=== PATIENT | male | born 1950 | race Caucasian/White ===

== ENCOUNTER → 2016-11-13 | Outpatient (CLI) | payer MEDICARE, OTHER | END | disposition home or self-care (01) | LOC: Rad HDHVI 09:29 | PROVIDERS: ATTEND Internal Medicine Cardiovascular Disease | DX: J32.9 Chronic sinusitis, unspecified (principal) | CPT/HCPCS: 70220 ==

== ENCOUNTER → 2017-03-06 | Outpatient (CLI) | payer MEDICARE, OTHER | END | disposition home or self-care (01) | LOC: Rad HDHVI 10:27 | PROVIDERS: ATTEND Internal Medicine Cardiovascular Disease | DX: Z01.812 Encounter for preprocedural laboratory examination (principal); R94.4 Abnormal results of kidney function studies | CPT/HCPCS: 36415; 82565; 84520; 93880 ==

== ENCOUNTER → 2017-06-18 | Outpatient (CLI) | payer MEDICARE, OTHER ==
[~2017-06-18] MED LIST: ALLO300T2 PO; ASPI81TA27 PO; ATOR20TA50 PO; CELE200C PO; CHOL20007 OR; CLIN1CAP4 PO; DULA0.5I SC; INSLISPI SC; INSU1.2I SC; LEVO100T8 PO; METF-372 PO; MULTTAB61 PO; NEBI10TA2 PO; RIV15T PO; TELM80TA PO
[2017-06-18 16:19] LABS: Calcium 9.6 mg/dL (8.5-10.1)
[2017-06-18 16:21] LABS: Basophils # (auto) 0 uL; Basophils % (auto) 0.2 % (0.0-2.0); Eosinophils # (auto) 0.1 uL; Eosinophils % (auto) 0.6 % (0.0-7.0); Hematocrit 46.5 % (41.0-53.0); Hemoglobin 15.4 g/dL (13.5-17.5); Lymphocytes # (auto) 1.9 uL; Lymphocytes % (auto) 9.5 % (10.0-50.0); Mean Corpuscular Hemoglobin 28.5 pg (28.0-32.0); Mean Corpuscular Hgb Conc. 33.1 g/dL (32.0-36.0); Monocytes # (auto) 1.3 uL; Monocytes % (auto) 6.6 % (0.0-12.0); Neutrophils # (auto) 16.2 uL; Neutrophils % (auto) 83.1 % (37.0-80.0); Nucleated Red Blood Cells % 0.2 %; Platelet Count (auto) 281 10^3/uL (140-450); Red Cell Distribution Width 15.6 % (11.8-14.3); White Blood Cell 19.5 10^3/uL (4.4-10.8)
[2017-06-18 16:25] LABS: Urine Bilirubin Negative (Negative); Urine Blood Negative /uL (Negative); Urine Color Yellow (Yellow); Urine Glucose Normal (Normal); Urine Ketone Negative (Negative); Urine Nitrite Negative (Negative); Urine Urobilinogen Normal (Negative)
== END | disposition home or self-care (01) ==
LOC: LAB 13:22
PROVIDERS: ATTEND Internal Medicine Cardiovascular Disease
DX: I10 Essential (primary) hypertension (principal); D64.9 Anemia, unspecified; N39.0 Urinary tract infection, site not specified
CPT/HCPCS: 36415; 80048; 81003; 85025

== ENCOUNTER → 2017-07-02 | Outpatient (CLI) | payer MEDICARE, OTHER ==
[~2017-07-02] MED LIST changes: +HEPARIN 1,000 UNITS/ml 1ML VIAL ONE
== END | disposition home or self-care (01) ==
LOC: XY 08:33
PROVIDERS: ATTEND Orthopaedic Surgery
DX: T81.4XXA Infection following a procedure, initial encounter (principal)
CPT/HCPCS: 78805; A9547; J1644

== ENCOUNTER → 2017-09-11 | Outpatient (CLI) | payer MEDICARE, OTHER ==
[~2017-09-11] MED LIST changes: -HEPARIN 1,000 UNITS/ml 1ML VIAL ONE
== END | disposition home or self-care (01) ==
LOC: LAB 08:56
PROVIDERS: ATTEND Internal Medicine Cardiovascular Disease
DX: E11.9 Type 2 diabetes mellitus without complications (principal); E55.9 Vitamin D deficiency, unspecified; R53.81 Other malaise; R97.20 Elevated prostate specific antigen [PSA]
CPT/HCPCS: 36415; 82306; 83036; 84153; 84403

== ENCOUNTER → 2018-05-20 | Outpatient (CLI) | payer MEDICARE, OTHER | END | disposition home or self-care (01) | LOC: LAB 09:16 | PROVIDERS: ATTEND Internal Medicine Cardiovascular Disease | DX: E11.40 Type 2 diabetes mellitus with diabetic neuropathy, unspecified (principal) | CPT/HCPCS: 36415; 83036 ==

== ENCOUNTER → 2018-06-27 | Outpatient (CLI) | payer MEDICARE, BC ==
[~2018-06-27] VITALS: Ht 177.8 cm; Wt 111.1 kg
[~2018-06-27] MED LIST changes: +ADENOSINE 90 MG/30 ML INJ IV ONE; +ADENOSINE 93 MG in GIVE UN-DILUTED 0 ML IV ONE
== END | disposition home or self-care (01) ==
LOC: Rad HDHVI 13:17
PROVIDERS: ATTEND Internal Medicine Cardiovascular Disease
DX: E11.40 Type 2 diabetes mellitus with diabetic neuropathy, unspecified (principal); E11.65 Type 2 diabetes mellitus with hyperglycemia; E78.5 Hyperlipidemia, unspecified; I10 Essential (primary) hypertension
CPT/HCPCS: 78452; 93005; 96374; 96375; A9500; J0153

== ENCOUNTER → 2019-04-15 | Outpatient (CLI) | payer MEDICARE, BC ==
[~2019-04-15] MED LIST changes: -ADENOSINE 90 MG/30 ML INJ IV ONE; -ADENOSINE 93 MG in GIVE UN-DILUTED 0 ML IV ONE; +ASPI-404 PO; -ASPI81TA27 PO; -CLIN1CAP4 PO; +CLIN300C8 PO
[2019-04-15 12:25] LABS: Basophils # (auto) 0.1 uL; Eosinophils # (auto) 0.2 uL; Lymphocytes # (auto) 1.6 uL; Nucleated Red Blood Cells % 0.1 %
[2019-04-15 12:28] LABS: Basophils % (auto) 0.8 % (0.0-2.0); Hematocrit 50.6 % (41.0-53.0); Hemoglobin 17.6 g/dL (13.5-17.5); Lymphocytes % (auto) 15.5 % (10.0-50.0); Mean Corpuscular Hemoglobin 31.7 pg (28.0-32.0); Mean Corpuscular Hgb Conc. 34.7 g/dL (32.0-36.0); Mean Corpuscular Volume 91.3 fL (80.0-100.0); Monocytes # (auto) 0.8 uL; Monocytes % (auto) 7.4 % (0.0-12.0); Neutrophils # (auto) 7.6 uL; Neutrophils % (auto) 74.3 % (37.0-80.0); Platelet Count (auto) 247 10^3/uL (140-450); Red Blood Cells 5.54 10^6/uL (4.5-5.90); Red Cell Distribution Width 14.8 % (11.8-14.3); White Blood Cell 10.2 10^3/uL (4.4-10.8)
[2019-04-15 12:37] LABS: Potassium 3.9 mmol/L (3.5-5.1)
[2019-04-15 12:48] LABS: Albumin 3.2 g/dL (3.4-5.0); BUN/Creatinine Ratio 16.7; Bilirubin, Total 1.3 mg/dL (0.2-1.0); Calcium 9.2 mg/dL (8.5-10.1); Total Protein 7.7 g/dL (6.4-8.2); Urine Blood Negative /uL (Negative); Urine Specific Gravity 1.024 (1.001-1.035)
[2019-04-15 13:11] LABS: Free T4 (Free Thyroxine) 1.13 ng/dL (0.89-1.76)
[2019-04-15 13:12] LABS: Prostate Specific Antigen 1.21 ng/mL (0.0-4.0)
== END | disposition home or self-care (01) ==
LOC: Rad HDHVI 08:08
PROVIDERS: ATTEND Internal Medicine Cardiovascular Disease
DX: E11.40 Type 2 diabetes mellitus with diabetic neuropathy, unspecified (principal); E03.9 Hypothyroidism, unspecified; K90.9 Intestinal malabsorption, unspecified; C61 Malignant neoplasm of prostate; E29.1 Testicular hypofunction; N39.0 Urinary tract infection, site not specified; D51.9 Vitamin B12 deficiency anemia, unspecified; Z79.899 Other long term (current) drug therapy
CPT/HCPCS: 36415; 80053; 80061; 81003; 82306; 82607; 83036; 84153; 84403; 84439; 84443; 85025; 93880

== ENCOUNTER → 2019-04-23 | Outpatient (CLI) | payer MEDICARE, BC ==
[~2019-04-23] VITALS: Ht 177.8 cm; Wt 101.2 kg
[~2019-04-23] MED LIST changes: +ADENOSINE 85 MG in GIVE UN-DILUTED 0 ML IV ONE; +ADENOSINE 90 MG/30 ML INJ IV ONE
== END | disposition home or self-care (01) ==
LOC: Rad HDHVI 12:45
PROVIDERS: ATTEND Internal Medicine Cardiovascular Disease
DX: I08.1 Rheumatic disorders of both mitral and tricuspid valves (principal); I49.5 Sick sinus syndrome; R06.02 Shortness of breath
CPT/HCPCS: 78452; 93005; 93306; 96374; 96375; A9500; J0153

== ENCOUNTER → 2019-09-01 | Outpatient (CLI) | payer MEDICARE, BC ==
[~2019-09-01] MED LIST changes: -ADENOSINE 85 MG in GIVE UN-DILUTED 0 ML IV ONE; -ADENOSINE 90 MG/30 ML INJ IV ONE
[2019-09-01 12:42] LABS: Albumin 3.2 g/dL (3.4-5.0); Calcium 8.8 mg/dL (8.5-10.1); Potassium 4.2 mmol/L (3.5-5.1)
[2019-09-01 12:46] LABS: BUN/Creatinine Ratio 13.6; Bilirubin, Total 0.9 mg/dL (0.2-1.0); Total Protein 7.5 g/dL (6.4-8.2)
== END | disposition home or self-care (01) ==
LOC: LAB 10:52
PROVIDERS: ATTEND Internal Medicine Cardiovascular Disease
DX: E11.9 Type 2 diabetes mellitus without complications (principal); Z79.899 Other long term (current) drug therapy
CPT/HCPCS: 36415; 80053; 83036

== ENCOUNTER → 2019-09-15 | Outpatient (CLI) | payer MEDICARE, BC | END | disposition home or self-care (01) | LOC: LAB 12:12 | PROVIDERS: ATTEND Internal Medicine Cardiovascular Disease | DX: E29.1 Testicular hypofunction (principal); R94.4 Abnormal results of kidney function studies | CPT/HCPCS: 36415; 82565; 84403 ==

== ENCOUNTER → 2019-09-16 | Outpatient (CLI) | payer MEDICARE, BC ==
[~2019-09-16] MED LIST changes: +IOHEXOL 350 MG/ML 100ML IJ ONE
[2019-09-16 09:50] VITALS: BP 143/78
[2019-09-16 10:30] VITALS: BP 127/87
== END | disposition home or self-care (01) ==
LOC: Rad HDHVI 09:22
PROVIDERS: ATTEND Internal Medicine Cardiovascular Disease
DX: I70.1 Atherosclerosis of renal artery (principal); K57.30 Diverticulosis of large intestine without perforation or abscess without bleeding; I73.9 Peripheral vascular disease, unspecified; I10 Essential (primary) hypertension; M10.9 Gout, unspecified; Z95.0 Presence of cardiac pacemaker
CPT/HCPCS: 75635; G0463; Q9967

== ENCOUNTER → 2020-04-09 | Outpatient (CLI) | payer MEDICARE, BC ==
[~2020-04-09] MED LIST changes: -ASPI-404 PO; +ASPI-543 PO; -IOHEXOL 350 MG/ML 100ML IJ ONE; +MULT-1018 PO; -MULTTAB61 PO
== END | disposition home or self-care (01) ==
LOC: Rad HDHVI 08:48
PROVIDERS: ATTEND Internal Medicine Cardiovascular Disease
DX: Z13.88 Encounter for screening for disorder due to exposure to contaminants (principal); I70.0 Atherosclerosis of aorta; M47.814 Spondylosis without myelopathy or radiculopathy, thoracic region; Z95.0 Presence of cardiac pacemaker
CPT/HCPCS: 71046

== ENCOUNTER → 2020-04-15 | Outpatient (CLI) | payer MEDICARE, BC | END | disposition home or self-care (01) | LOC: Rad HDHVI 09:03 | PROVIDERS: ATTEND Internal Medicine Cardiovascular Disease | DX: I34.0 Nonrheumatic mitral (valve) insufficiency (principal); I51.7 Cardiomegaly; R00.2 Palpitations; R06.02 Shortness of breath | CPT/HCPCS: 93306 ==

== ENCOUNTER → 2020-04-21 | Outpatient (CLI) | payer MEDICARE, BC ==
[~2020-04-21] VITALS: Ht 177.8 cm; Wt 104.3 kg
[~2020-04-21] MED LIST changes: +ADENOSINE 88 MG in GIVE UN-DILUTED 0 ML IV ONE; +ADENOSINE 90 MG/30 ML INJ IV ONE
== END | disposition home or self-care (01) ==
LOC: Rad HDHVI 09:03
PROVIDERS: ATTEND Internal Medicine Cardiovascular Disease
DX: I10 Essential (primary) hypertension (principal); E11.21 Type 2 diabetes mellitus with diabetic nephropathy; E78.5 Hyperlipidemia, unspecified; R06.02 Shortness of breath; R00.2 Palpitations; Z95.0 Presence of cardiac pacemaker; Z82.49 Family history of ischemic heart disease and other diseases of the circulatory system
CPT/HCPCS: 78452; 93005; 96374; 96375; A9500; J0153

== ENCOUNTER → 2020-04-26 | Outpatient (CLI) | payer MEDICARE, BC ==
[~2020-04-26] MED LIST changes: -ADENOSINE 88 MG in GIVE UN-DILUTED 0 ML IV ONE; -ADENOSINE 90 MG/30 ML INJ IV ONE
[2020-04-26 12:05] LABS: Basophils # (auto) 0 10 ^3/uL (0-0.2); Basophils % (auto) 0.3 % (0.0-2.0); Eosinophils # (auto) 0.3 10 ^3/uL (0-0.8); Eosinophils % (auto) 2.6 % (0.0-7.0); Hematocrit 52.9 % (41.0-53.0); Hemoglobin 17.3 g/dL (13.5-17.5); Lymphocytes # (auto) 1.8 10 ^3/uL (0.4-5.4); Lymphocytes % (auto) 17.9 % (10.0-50.0); Mean Corpuscular Hemoglobin 31.1 pg (28.0-32.0); Mean Corpuscular Hgb Conc. 32.7 g/dL (32.0-36.0); Mean Corpuscular Volume 95.2 fL (80.0-100.0); Monocytes # (auto) 0.7 10 ^3/uL (0-1.3); Monocytes % (auto) 6.5 % (0.0-12.0); Neutrophils # (auto) 7.3 10 ^3/uL (1.6-8.6); Neutrophils % (auto) 72.7 % (37.0-80.0); Nucleated Red Blood Cells % 0.2 %; Platelet Count (auto) 246 10^3/uL (140-450); Red Blood Cells 5.56 10^6/uL (4.5-5.90); Red Cell Distribution Width 15.2 % (11.8-14.3); White Blood Cell 10.1 10^3/uL (4.4-10.8)
[2020-04-26 12:11] LABS: Urine Blood Negative /uL (Negative)
[2020-04-26 12:25] LABS: Albumin 3.3 g/dL (3.4-5.0); Potassium 4.2 mmol/L (3.5-5.1)
[2020-04-26 12:32] LABS: BUN/Creatinine Ratio 11.5; Bilirubin, Total 0.8 mg/dL (0.2-1.0); Calcium 9.3 mg/dL (8.5-10.1); Free T4 (Free Thyroxine) 1.01 ng/dL (0.89-1.76); Total Protein 7.5 g/dL (6.4-8.2)
== END | disposition home or self-care (01) ==
LOC: LAB 08:29
PROVIDERS: ATTEND Internal Medicine Cardiovascular Disease
DX: C61 Malignant neoplasm of prostate (principal); D51.3 Other dietary vitamin B12 deficiency anemia; D64.9 Anemia, unspecified; E11.9 Type 2 diabetes mellitus without complications; E55.9 Vitamin D deficiency, unspecified; I10 Essential (primary) hypertension; R00.2 Palpitations; R53.1 Weakness; R30.0 Dysuria
CPT/HCPCS: 36415; 80053; 80061; 81003; 82306; 82607; 83036; 84153; 84403; 84439; 84443; 85025

== ENCOUNTER → 2020-11-16 | Outpatient (CLI) | payer MEDICARE, BC ==
[2020-11-16 11:42] LABS: Basophils # (auto) 0 10 ^3/uL (0-0.2); Basophils % (auto) 0.2 % (0.0-2.0); Eosinophils # (auto) 0.4 10 ^3/uL (0-0.8); Eosinophils % (auto) 2.9 % (0.0-7.0); Hematocrit 52.1 % (41.0-53.0); Hemoglobin 17.4 g/dL (13.5-17.5); Lymphocytes # (auto) 2.6 10 ^3/uL (0.4-5.4); Lymphocytes % (auto) 20.8 % (10.0-50.0); Mean Corpuscular Hgb Conc. 33.4 g/dL (32.0-36.0); Mean Corpuscular Volume 95.7 fL (80.0-100.0); Monocytes # (auto) 0.9 10 ^3/uL (0-1.3); Monocytes % (auto) 7.4 % (0.0-12.0); Neutrophils # (auto) 8.5 10 ^3/uL (1.6-8.6); Neutrophils % (auto) 68.7 % (37.0-80.0); Nucleated Red Blood Cells % 0.1 %; Platelet Count (auto) 261 10^3/uL (140-450); Red Blood Cells 5.45 10^6/uL (4.5-5.90); Red Cell Distribution Width 14.7 % (11.8-14.3); White Blood Cell 12.4 10^3/uL (4.4-10.8)
[2020-11-16 11:54] LABS: Albumin 3.4 g/dL (3.4-5.0); Calcium 8.9 mg/dL (8.5-10.1); Potassium 3.8 mmol/L (3.5-5.1)
[2020-11-16 11:59] LABS: BUN/Creatinine Ratio 16.2; Total Protein 7.6 g/dL (6.4-8.2)
[2020-11-16 12:03] LABS: Free T4 (Free Thyroxine) 1.29 ng/dL (0.89-1.76); Prostate Specific Antigen 0.94 ng/mL (0.0-4.0)
== END | disposition home or self-care (01) ==
LOC: LAB 08:49
PROVIDERS: ATTEND Internal Medicine Cardiovascular Disease
DX: C61 Malignant neoplasm of prostate (principal); D51.3 Other dietary vitamin B12 deficiency anemia; I10 Essential (primary) hypertension; E11.9 Type 2 diabetes mellitus without complications; E55.9 Vitamin D deficiency, unspecified; D64.9 Anemia, unspecified; R00.2 Palpitations; R53.1 Weakness; R30.0 Dysuria
CPT/HCPCS: 36415; 80053; 80061; 82306; 82607; 83036; 84153; 84403; 84439; 84443; 85025

== ENCOUNTER → 2020-11-17 | Outpatient (CLI) | payer MEDICARE, BC ==
[2020-11-17 11:56] LABS: Urine Blood Negative /uL (Negative); Urine Specific Gravity 1.024 (1.001-1.035)
== END | disposition home or self-care (01) ==
LOC: LAB 10:38
PROVIDERS: ATTEND Internal Medicine Cardiovascular Disease
DX: N39.0 Urinary tract infection, site not specified (principal)
CPT/HCPCS: 81003

== ENCOUNTER → 2021-06-06 | Outpatient (CLI) | payer MEDICARE, BC | END | disposition home or self-care (01) | LOC: Rad HDHVI 07:55 | PROVIDERS: ATTEND Internal Medicine Cardiovascular Disease | DX: R00.2 Palpitations (principal); R06.02 Shortness of breath | CPT/HCPCS: 93306 ==

== ENCOUNTER → 2021-06-14 | Outpatient (CLI) | payer MEDICARE, BC ==
[~2021-06-14] VITALS: Ht 177.8 cm; Wt 104.3 kg
[~2021-06-14] MED LIST changes: +ADENOSINE 88 MG in GIVE UN-DILUTED 0 ML IV ONE; +ADENOSINE 90 MG/30 ML INJ IV ONE
== END | disposition home or self-care (01) ==
LOC: Rad HDHVI 08:22
PROVIDERS: ATTEND Internal Medicine Cardiovascular Disease
DX: R94.31 Abnormal electrocardiogram [ECG] [EKG] (principal); I10 Essential (primary) hypertension; E78.5 Hyperlipidemia, unspecified; E11.9 Type 2 diabetes mellitus without complications; Z95.0 Presence of cardiac pacemaker; Z82.49 Family history of ischemic heart disease and other diseases of the circulatory system
CPT/HCPCS: 78452; 82962; 93005; 96374; 96375; A9500; J0153

== ENCOUNTER → 2021-07-04 | Outpatient (CLI) | payer MEDICARE, BC ==
[~2021-07-04] MED LIST changes: -ADENOSINE 88 MG in GIVE UN-DILUTED 0 ML IV ONE; -ADENOSINE 90 MG/30 ML INJ IV ONE
[2021-07-04 11:18] LABS: Basophils # (auto) 0 10 ^3/uL (0-0.2); Basophils % (auto) 0.4 % (0.0-2.0); Eosinophils # (auto) 0.3 10 ^3/uL (0-0.8); Eosinophils % (auto) 2.6 % (0.0-7.0); Hematocrit 51.7 % (41.0-53.0); Hemoglobin 17.4 g/dL (13.5-17.5); Lymphocytes # (auto) 2.6 10 ^3/uL (0.4-5.4); Lymphocytes % (auto) 23.4 % (10.0-50.0); Mean Corpuscular Hemoglobin 32.6 pg (28.0-32.0); Mean Corpuscular Hgb Conc. 33.6 g/dL (32.0-36.0); Mean Corpuscular Volume 96.8 fL (80.0-100.0); Monocytes # (auto) 0.9 10 ^3/uL (0-1.3); Neutrophils # (auto) 7.2 10 ^3/uL (1.6-8.6); Neutrophils % (auto) 65.6 % (37.0-80.0); Nucleated Red Blood Cells % 0.2 %; Red Blood Cells 5.35 10^6/uL (4.5-5.90); White Blood Cell 10.9 10^3/uL (4.4-10.8)
[2021-07-04 11:20] LABS: Urine Blood Negative /uL (Negative)
[2021-07-04 11:30] LABS: Albumin 3.4 g/dL (3.4-5.0)
[2021-07-04 11:37] LABS: BUN/Creatinine Ratio 13.7; Bilirubin, Total 1.1 mg/dL (0.2-1.0); Calcium 8.8 mg/dL (8.5-10.1); Total Protein 7.3 g/dL (6.4-8.2)
[2021-07-04 11:40] LABS: Free T4 (Free Thyroxine) 1.1 ng/dL (0.89-1.76); Prostate Specific Antigen 0.82 ng/mL (0.0-4.0)
== END | disposition home or self-care (01) ==
LOC: LAB 08:25
PROVIDERS: ATTEND Internal Medicine Cardiovascular Disease
DX: C61 Malignant neoplasm of prostate (principal); D51.3 Other dietary vitamin B12 deficiency anemia; R53.1 Weakness; R30.0 Dysuria; R00.2 Palpitations; E11.9 Type 2 diabetes mellitus without complications; E55.9 Vitamin D deficiency, unspecified; D64.9 Anemia, unspecified
CPT/HCPCS: 36415; 80053; 80061; 81003; 82306; 82607; 83036; 84153; 84403; 84439; 84443; 85025

== ENCOUNTER → 2021-12-19 | Outpatient (CLI) | payer MEDICARE, BC ==
[2021-12-19 11:53] LABS: Basophils # (auto) 0.1 10 ^3/uL (0-0.2); Basophils % (auto) 0.5 % (0.0-2.0); Eosinophils # (auto) 0.3 10 ^3/uL (0-0.8); Eosinophils % (auto) 2.2 % (0.0-7.0); Hematocrit 50.8 % (41.0-53.0); Hemoglobin 16.8 g/dL (13.5-17.5); Lymphocytes # (auto) 2.8 10 ^3/uL (0.4-5.4); Lymphocytes % (auto) 21.7 % (10.0-50.0); Mean Corpuscular Hemoglobin 31.5 pg (28.0-32.0); Mean Corpuscular Hgb Conc. 33.1 g/dL (32.0-36.0); Mean Corpuscular Volume 95.2 fL (80.0-100.0); Monocytes # (auto) 0.9 10 ^3/uL (0-1.3); Monocytes % (auto) 6.9 % (0.0-12.0); Neutrophils % (auto) 68.7 % (37.0-80.0); Red Blood Cells 5.34 10^6/uL (4.5-5.90); Red Cell Distribution Width 14.7 % (11.8-14.3); White Blood Cell 13.1 10^3/uL (4.4-10.8)
[2021-12-19 11:59] LABS: Potassium 3.7 mmol/L (3.5-5.1)
[2021-12-19 12:06] LABS: Prostate Specific Antigen 0.79 ng/mL (0.0-4.0)
[2021-12-19 12:20] LABS: Albumin 3.1 g/dL (3.4-5.0); BUN/Creatinine Ratio 16.4; Bilirubin, Total 0.8 mg/dL (0.2-1.0); Calcium 8.8 mg/dL (8.5-10.1); Total Protein 7.4 g/dL (6.4-8.2)
[2021-12-19 12:21] LABS: Free T4 (Free Thyroxine) 1.17 ng/dL (0.89-1.76)
[2021-12-19 16:29] LABS: Urine Blood Negative /uL (Negative); Urine Specific Gravity 1.023 (1.001-1.035)
== END | disposition home or self-care (01) ==
LOC: LAB 08:29
PROVIDERS: ATTEND Internal Medicine Cardiovascular Disease
DX: I10 Essential (primary) hypertension (principal); E11.9 Type 2 diabetes mellitus without complications; E55.9 Vitamin D deficiency, unspecified; D51.3 Other dietary vitamin B12 deficiency anemia; D64.9 Anemia, unspecified; R00.2 Palpitations; R53.1 Weakness; R30.0 Dysuria; C61 Malignant neoplasm of prostate
CPT/HCPCS: 36415; 80053; 80061; 81003; 82306; 82607; 83036; 84153; 84403; 84439; 84443; 85025

== ENCOUNTER → 2022-06-05 | Outpatient (CLI) | payer MEDICARE, BC | END | disposition home or self-care (01) | LOC: Rad HDHVI 08:45 | PROVIDERS: ATTEND Internal Medicine Cardiovascular Disease | DX: I08.3 Combined rheumatic disorders of mitral, aortic and tricuspid valves (principal); I11.9 Hypertensive heart disease without heart failure; E78.5 Hyperlipidemia, unspecified | CPT/HCPCS: 93306 ==

== ENCOUNTER → 2022-06-14 | Outpatient (CLI) | payer MEDICARE, BC ==
[~2022-06-14] VITALS: Ht 177.8 cm; Wt 102.1 kg
[~2022-06-14] MED LIST changes: +ADENOSINE 86 MG in GIVE UN-DILUTED 0 ML IV ONE; +ADENOSINE 90 MG/30 ML INJ IV ONE
== END | disposition home or self-care (01) ==
LOC: Rad HDHVI 09:00
PROVIDERS: ATTEND Internal Medicine Cardiovascular Disease
DX: I25.10 Atherosclerotic heart disease of native coronary artery without angina pectoris (principal); E78.5 Hyperlipidemia, unspecified; E78.00 Pure hypercholesterolemia, unspecified; E11.9 Type 2 diabetes mellitus without complications; I48.91 Unspecified atrial fibrillation; J44.9 Chronic obstructive pulmonary disease, unspecified; R06.02 Shortness of breath; I11.0 Hypertensive heart disease with heart failure; I50.33 Acute on chronic diastolic (congestive) heart failure; Z79.84 Long term (current) use of oral hypoglycemic drugs; Z79.899 Other long term (current) drug therapy; Z95.0 Presence of cardiac pacemaker; I48.0 Paroxysmal atrial fibrillation
CPT/HCPCS: 78452; 93005; 96374; 96375; A9500; J0153

== ENCOUNTER → 2022-06-21 | Outpatient (CLI) | payer MEDICARE, BC ==
[~2022-06-21] MED LIST changes: -ADENOSINE 86 MG in GIVE UN-DILUTED 0 ML IV ONE; -ADENOSINE 90 MG/30 ML INJ IV ONE
== END | disposition home or self-care (01) ==
LOC: Rad HDHVI 09:54
PROVIDERS: ATTEND Internal Medicine Cardiovascular Disease
DX: I65.22 Occlusion and stenosis of left carotid artery (principal); R07.89 Other chest pain; I10 Essential (primary) hypertension
CPT/HCPCS: 93880

== ENCOUNTER 2023-01-04 09:42 | Day surgery (SDC) | payer MEDICARE, BC ==
[2022-12-28 09:54] LABS: Basophils # (auto) 0.1 10 ^3/uL (0-0.2); Basophils % (auto) 0.5 % (0.0-2.0); Eosinophils # (auto) 0.2 10 ^3/uL (0-0.8); Eosinophils % (auto) 1.2 % (0.0-7.0); Hemoglobin 16.6 g/dL (13.5-17.5); Lymphocytes # (auto) 1.4 10 ^3/uL (0.4-5.4); Lymphocytes % (auto) 11.1 % (10.0-50.0); Mean Corpuscular Hemoglobin 31.8 pg (28.0-32.0); Mean Corpuscular Hgb Conc. 33.9 g/dL (32.0-36.0); Monocytes # (auto) 0.8 10 ^3/uL (0-1.3); Monocytes % (auto) 6.4 % (0.0-12.0); Neutrophils # (auto) 10.5 10 ^3/uL (1.6-8.6); Neutrophils % (auto) 80.8 % (37.0-80.0); Red Blood Cells 5.22 10^6/uL (4.5-5.90); Red Cell Distribution Width 15.1 % (11.8-14.3)
[2022-12-28 10:41] LABS: INR 0.97 (0.9-1.15); Partial Thromboplastin Time 30.5 sec (24.6-33.4)
[2022-12-28 11:09] LABS: Potassium 4.2 mmol/L (3.5-5.1)
[2022-12-28 11:19] LABS: Albumin 3.6 g/dL (3.4-5.0); BUN/Creatinine Ratio 14.2 (10.0-20.0); Bilirubin, Total 0.8 mg/dL (0.2-1.0); Total Protein 7.2 g/dL (6.4-8.2)
[2022-12-28 12:54] LABS: Urine Bacteria NONE SEEN /hpf (None Seen); Urine Blood Negative /uL (Negative); Urine Specific Gravity 1.024 (1.001-1.035); Urine WBC <1 /hpf (0 - 3)
[~2023-01-04] VITALS: Ht 177.8 cm; Wt 99.8 kg
[~2023-01-04 09:42] MED LIST changes: +APIX5TAB PO; -CLIN300C8 PO; -RIV15T PO
[2023-01-04] MEDS ORDERED: fentaNYL CITRATE 100 MCG/2 ML VL ONE (12:02)
[2023-01-04] MEDS ORDERED: MIDAZOLAM HCL 2MG/2ML 2ml VIAL (1mg/ml) ONE (12:02)
[2023-01-04] MEDS ORDERED: ONDANSETRON HCL 4 MG/2 ML VIAL ONE (12:25)
[2023-01-04] MEDS ORDERED: PROPOFOL 10 MG/ML 20 ML IV ONE (12:25)
[2023-01-04] MEDS ORDERED: KETAMINE HCL 10 ML ONE (13:02)
[2023-01-04] MEDS ORDERED: ONDANSETRON HCL 4 MG/2 ML VIAL IV PRN (13:30)
[2023-01-04 14:18] VITALS: BP 117/73
== END 2023-01-04 14:29 | disposition home or self-care (01) ==
LOC: GI 09:42
PROVIDERS: ATTEND Internal Medicine Gastroenterology
DX: R13.10 Dysphagia, unspecified (principal); K59.00 Constipation, unspecified; K57.30 Diverticulosis of large intestine without perforation or abscess without bleeding; E11.9 Type 2 diabetes mellitus without complications
CPT/HCPCS: 36415; 43248; 45378; 80053; 81001; 82962; 85025; 85610; 85730; J2250; J2405; J2704; J3010; J7030

== ENCOUNTER → 2023-06-12 | Outpatient (CLI) | payer MEDICARE, BC | END | disposition home or self-care (01) | LOC: Rad HDHVI 09:56 | PROVIDERS: ATTEND Internal Medicine Cardiovascular Disease | DX: I08.3 Combined rheumatic disorders of mitral, aortic and tricuspid valves (principal); R07.89 Other chest pain; E78.5 Hyperlipidemia, unspecified | CPT/HCPCS: 93306 ==

== ENCOUNTER → 2023-06-25 | Outpatient (CLI) | payer MEDICARE, BC ==
[~2023-06-25] VITALS: Ht 177.8 cm; Wt 95.3 kg
[~2023-06-25] MED LIST changes: +ADENOSINE 80 MG in GIVE UN-DILUTED 0 ML IV ONE; +ADENOSINE 90 MG/30 ML INJ IV ONE
== END | disposition home or self-care (01) ==
LOC: Rad HDHVI 09:22
PROVIDERS: ATTEND Internal Medicine Cardiovascular Disease
DX: I11.9 Hypertensive heart disease without heart failure (principal); R07.89 Other chest pain; R06.02 Shortness of breath; E11.21 Type 2 diabetes mellitus with diabetic nephropathy; E11.40 Type 2 diabetes mellitus with diabetic neuropathy, unspecified; I10 Essential (primary) hypertension; E78.5 Hyperlipidemia, unspecified; Z95.0 Presence of cardiac pacemaker; Z82.49 Family history of ischemic heart disease and other diseases of the circulatory system
CPT/HCPCS: 78452; 93005; 96374; 96375; A9500; J0153

== ENCOUNTER → 2024-08-25 | Outpatient (CLI) | payer MEDICARE, BC ==
[~2024-08-25] MED LIST changes: -ADENOSINE 80 MG in GIVE UN-DILUTED 0 ML IV ONE; -ADENOSINE 90 MG/30 ML INJ IV ONE
== END | disposition home or self-care (01) ==
LOC: Rad HDHVI 08:07
PROVIDERS: ATTEND Internal Medicine Cardiovascular Disease
DX: I11.0 Hypertensive heart disease with heart failure (principal); I50.33 Acute on chronic diastolic (congestive) heart failure
CPT/HCPCS: 93306

== ENCOUNTER → 2024-12-02 | Outpatient (CLI) | payer MEDICARE, BC ==
[~2024-12-02] MED LIST changes: +AMLO1TAB23 PO; +APIX2.5T PO; +FINA5TAB4 PO; +FINE10TA PO; +LISI-706 PO
[2024-12-02 12:10] VITALS: BP 125/61; PULSE 75; RESP 16; O2SAT 94
[2024-12-02 12:25] VITALS: BP 114/62; PULSE 73; RESP 16; O2SAT 94
--- NOTE | 2024-12-02 13:39 | DVH ---
XY CHEST TWO VIEWS ROUTINE CLINICAL HISTORY: PRE OP CARDIAC CLEARANCE, pain COMPARISON: CHEST TWO VIEWS ROUTINE on DOS: 04/09/20 TECHNIQUE: Frontal and lateral view of the chest was obtained FINDINGS: Lines and Tubes: Left sided pacemaker. Lungs: No focal consolidation. Pleura: No effusion. No pneumothorax. Cardiomediastinal contours: Unremarkable Bones: No acute osseous abnormality. IMPRESSION: No acute cardiopulmonary disease.
== END | disposition home or self-care (01) ==
LOC: Rad HDHVI 11:57
PROVIDERS: ATTEND Internal Medicine Cardiovascular Disease
DX: Z01.818 Encounter for other preprocedural examination (principal); I48.91 Unspecified atrial fibrillation; R07.9 Chest pain, unspecified; I50.1 Left ventricular failure, unspecified; I49.5 Sick sinus syndrome
CPT/HCPCS: 71046; 93005; G0463

== ENCOUNTER → 2025-02-06 | Outpatient (CLI) | payer MEDICARE, BC ==
[~2025-02-06] MED LIST changes: -APIX5TAB PO; -ASPI-543 PO; -NEBI10TA2 PO; -TELM80TA PO
== END | disposition home or self-care (01) ==
LOC: Rad HDHVI 08:52
PROVIDERS: ATTEND Internal Medicine Cardiovascular Disease
DX: I08.1 Rheumatic disorders of both mitral and tricuspid valves (principal); I11.0 Hypertensive heart disease with heart failure; I50.33 Acute on chronic diastolic (congestive) heart failure
CPT/HCPCS: 93306

== ENCOUNTER 2025-03-15 16:26 | Inpatient (IN) | payer MEDICARE, BC ==
[~2025-03-15] VITALS: Ht 175.3 cm; Wt 90.2 kg
--- NOTE | 2025-03-15 17:38 | ECG ---
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
--- NOTE | 2025-03-15 17:47 | ED.PDOC ---
History of Present Illness HPI Comments 74M BIBA w/ prior MHx of HTN, DM, High Lipids, Thyroid:SHx of Pacemaker, Left hip Sx, Bilateral Knee Sx and the c/c of syncope. Pt reports on getting an angiogram last week with Dr. Strong. Pt states on being dizzy, earlier today and his had to help the pt out due from him feeling weak and having N/. Pt n otes that he did not have a syncopal episode but he did "feel as if I was going to pass out". Denies chills, fever, /V/D, SOB, CP. Denies any other associated symptom's, modifiers, or recent injuries or sick contact at this time. Chief Complaint: Syncope Time Seen by MD: 17:30 Reviewed Notes: Nurses Notes, Medications, Allergies Allergies: Coded Allergies: Penicillins (Verified Allergy, Unknown, 12/02/24) Home Meds Reported Medications Insulin Glargine (Toujeo Solostar) 300 Unit/Ml Inj, 24 UNIT SC for DIABETES, INJ 12/02/24 Finerenone (Kerendia) 10 Mg Tab, 10 MG PO DAILY for DIABETES, TAB 12/02/24 Lisinopril & Hydrochlorothiazi (Zestoretic 20-12.5 mg) 1 Tab Tab, 2 TAB PO DAILY for BP/EDEMA, TAB 12/02/24 Amlodipine Besylate (Amlodipine Besylate) 10 Mg Tab, 1 TAB PO DAILY for HTN, #30 TAB 5 Refills 12/02/24 Apixaban Base (ELIQUIS) 2.5 Mg Tab, 2.5 MG PO BID for STOP ON 12/03/24, TAB 12/02/24 Finasteride (Finasteride) 5 Mg Tab, 5 MG PO DAILY for BPH, MG 12/02/24 Allopurinol (Allopurinol) 300 Mg Tab, 300 MG PO DAILY for GOUT for 30 Days, MG 03/23/17 Levothyroxine Sodium (Levothyroxine Sodium) 100 Mcg Tab, 100 MCG PO QAM for LOW THYROID for 30 Days, MCG 03/23/17 Multiple Vitamin (Multivitamins) Tab, 1 TAB PO DAILY, #90 TAB 3 Refills 03/23/17 Metformin Hydrochloride (Metformin Hcl) 1,000 Mg Tab, 1 TAB PO BID for DIABETES, #60 TAB 5 Refills 03/23/17 Cholecalciferol (VITAMIN D3) 2,000 Unit Tab, 1000 UNIT OR DAILY, TAB 03/23/17 Celecoxib (Celebrex) 200 Mg Cap, 1 CAP PO DAILY for PAIN, #30 CAP 2 Refills 03/23/17 Atorvastatin Calcium (ATORVASTATIN CALCIUM) 20 Mg Tab, 2 TAB PO DAILY for HIGH CHOLESTEROL, #30 TAB 5 Refills 03/23/17 Insulin Lispro (Human) (Humalog) 100 Mg/Ml Inj, 24 UNITS SC TID, INJ 03/23/17 Dulaglutide (Trulicity) 1.5 Mg/0.5 Ml Inj, 1.5 MG SC QWEEKLY for SATURDAYS, INJ 03/23/17 Information Source: Patient Mode of Arrival: EMS Severity: Moderate Timing: Hours Duration: Since onset, Hours Prehospital treatment: None Past Medical History PAST MEDICAL HISTORY: DM, High Lipids, HTN, Thyroid Surgical History: Pacemaker Surgical History (Other): left hip Sx, Bilateral Knee Sx Family History Family History: Reviewed,noncontributory to illness, Family hx of HTN Social History Smoker: Non-Smoker Alcohol: Denies ETOH Use Drugs: Denies Drug Use Lives In: Home Constitutional: denies: chills, diaphoresis, fatigue, fever, malaise, sweats, weakness, others EENTM: denies: blurred vision, double vision, ear bleeding, ear discharge, ear drainage, ear pain, ear ringing, eye pain, eye redness, hearing loss, mouth pain, mouth swelling, nasal discharge, nose bleeding, nose congestion, nose pain, photophobia, tearing, throat pain, throat swelling, voice changes, others Respiratory: denies: cough, hemoptysis, orthopnea, SOB at rest, shortness of breath, SOB with excertion, stridor, wheezing, others Cardiovascular: denies: chest pain, dizzy spells, diaphoresis, Dyspnea on exertion, edema, irregular heart beat, left arm pain, lightheadedness, palpitations, PND, syncope, others Gastrointestinal: reports: nausea; denies: abdomen distended, abdominal pain, blood streaked bowels, constipated, diarrhea, dysphagia, difficulty swallowing, hematemesis, melena, poor appetite, poor fluid intake, rectal bleeding, rectal pain, vomiting, others Genitourinary: denies: burning, dysuria, flank pain, frequency, hematuria, incontinence, penile discharge, penile sore, pain, testicle pain, testicle swelling, urgency, others Neurological: reports: dizziness; denies: fainting, headache, left sided numbness, left sided weakness, numbness, paresthesia, pre-existing deficit, right sided numbness, right sided weakness, seizure, speech problems, tingling, tremors, weakness, others Musculoskeletal: denies: back pain, gout, joint pain, joint swelling, muscle pain, muscle stiffness, neck pain, others Integumetry: denies: bruises, change in color, change in hair/nails, dryness, laceration, lesions, lumps, rash, wounds, others Allergic/Immunocompromised: denies: Difficulty Healing, Frequent Infections, Hives, Itching, others Hematologic/Lymphatic: denies: anemia, blood clots, easy bleeding, easy bruising, swollen glands, others Endocrine: denies: excessive hunger, excessive sweating, excessive thirst, excessive urination, flushing, intolerance to cold, intolerance to heat, unexplained weight gain, unexplained weight loss, others Psychiatric: denies: anxiety, bipolar disorder, depression, hopeless, panic disorder, schizophrenia, sleepless, suicidal, others All Other Systems: Reviewed and Negative Physical Exam General Appearance: Moderate Distress HEENT: Pale Conjuntivae (L), Pale Conjuntivae (R), Pharynx Normal, TMs Normal Neck: Full Range of Motion, Non-Tender, Normal, Normal Inspection Respiratory: Chest Non-Tender, Decreased Breath Sounds, Lungs Clear, No Accessory Muscle Use, Respiratory Distress Cardiovascular: No Edema, No JVD, No Murmur, No Gallop, Normal Peripheral Pulses, Regular Rate/Rhythm Breast Exam: Deferred Gastrointestinal: No Organomegaly, Non Tender, No Pulsatile Mass, Normal Bowel Sounds, Soft Genitalia: Deferred Pelvic: Deferred Rectal: Deferred Extremities: No calf tenderness, Normal capillary refill, Non-tender, No pedal edema, Other (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 Was a procedure done?: No EKG EKG : Pulse Rate (adult): 79 [place]: Normal Cardiac Rhythm: NSR ST: Nonsp Differential Dx Considerations may include: Episode of syncope, autonomic dysfunction, generalized weakness, electrolyte imbalance X-Ray, Labs, Meds, VS Vital Signs Date Time Temp Pulse Resp B/P (MAP) Pulse Ox O2 Delivery O2 Flow Rate FiO2 03/15/25 19:35 70 13 97 Nasal Cannula* 2 28 03/15/25 19:35 70 13 106/62 (77) 97 03/15/25 17:25 Nasal Cannula* 2 28 03/15/25 17:18 97.6 65 16 105/62 (76) 93 97.6 03/15/25 16:55 97.6 71 18 113/80 96 97.6 03/15/25 16:40 70 Lab Test 03/15/25 19:47 03/15/25 18:53 03/15/25 17:56 03/15/25 17:05 Range/Units Lactic Acid Level 2.8 *H 3.9 *H 0.4-2.0 mmol/L Troponin I High Sensitivity 12 12 </=54 ng/L White Blood Count 12.9 H 4.4-10.8 10^3/uL Red Blood Count 5.92 H 4.5-5.90 10^6/uL Hemoglobin 19.3 H 13.5-17.5 g/dL Hematocrit 56.1 H 41.0-53.0 % Mean Corpuscular Volume 94.8 80.0-100.0 fL Mean Corpuscular Hemoglobin 32.7 H 28.0-32.0 pg Mean Corpuscular Hemoglobin Concent 34.5 32.0-36.0 g/dL Red Cell Distribution Width 13.6 11.8-14.3 % Platelet Count 336 140-450 10^3/uL Mean Platelet Volume 7.7 6.9-10.8 fL Neutrophils (%) (Auto) 85.9 H 37.0-80.0 % Lymphocytes (%) (Auto) 7.6 L 10.0-50.0 % Monocytes (%) (Auto) 5.8 0.0-12.0 % Eosinophils (%) (Auto) 0.4 0.0-7.0 % Basophils (%) (Auto) 0.3 0.0-2.0 % Neutrophils # (Auto) 11.1 H 1.6-8.6 10 ^3/uL Lymphocytes # (Auto) 1.0 0.4-5.4 10 ^3/uL Monocytes # (Auto) 0.7 0-1.3 10 ^3/uL Eosinophils # (Auto) 0 0-0.8 10 ^3/uL Basophils # (Auto) 0 0-0.2 10 ^3/uL Nucleated Red Blood Cells 0.0 % D-Dimer, Quantitative 1.05 H 0.0-0.49 mg/L FEU Sodium Level 139 136-145 mmol/L Potassium Level 4.3 3.5-5.1 mmol/L Chloride Level 98 98-107 mmol/L Carbon Dioxide Level 28 20-31 mmol/L Anion Gap 13 5-15 Blood Urea Nitrogen 31 H 9-23 mg/dL Creatinine 1.59 H 0.700-1.30 mg/dL Glomerular Filtration Rate Calc 46 >90 mL/min BUN/Creatinine Ratio 19.5 10.0-20.0 Serum Glucose 204 H 74-106 mg/dL Calcium Level 10.1 8.7-10.4 mg/dL POC Glucose 216 H 70-106 mg/dl Current Medications Medications (Trade) Dose Ordered Sig/Macario Route Start Time Stop Time Status Last Admin Sodium Chloride 500 ml @ 500 mls/hr Q1H ONCE IV 03/15/25 17:45 03/15/25 18:44 DC 03/15/25 19:40 IV Hep-Lock was established The patient was given normal saline at a 500 cc bolus The BUN is 31 and the creatinine is 1.59 The D-dimer is elevated at 1.05 Because of the episode of syncope we are concerned that the patient may have had a PE. The patient's CBC shows an elevated white blood cell count of 12.9. The patient's troponin level is within normal limits The lactic acid level went from 3.9 at 2.8 The patient is being admitted The chest x-ray is negative The CAT scan of the chest to rule out PE was done and shows no sign of any abnormalities Images Reviewed?: Images reviewed and evaluated by me Time of 1ST Reevaluation: 18:00 Reevaluation 1ST: Unchanged Patient Education/Counseling: Diagnosis, Treatment, Prognosis Family Education/Counseling: No Family Present SEPSIS Sepsis Screen Date sepsis recognized/suspect: Mar 15, 2025 Time Sepsis recognized/suspect: 1635 Recent Procedure: No On Antibiotic Therapy: No Respiratory Rate >20: No Heart Rate >90: No Temp<36 C (96.8 F) or >38.3 C: No SBP <90 or MAP <65 mmHG: No New Acute Mental Status Change: No Is the patient on CPAP, BIPAP,: No Physician Orders Electrocardigram (03/15/25 17:36) Chest Portable (03/15/25 17:38) Urinalysis (03/15/25 17:38) Heplock Iv (03/15/25 17:38) Brokerage Branch Manager (03/15/25 17:38) Blood Pressure (03/15/25 17:38) Pulse Oximetry (03/15/25 17:38) Blood Culture (03/15/25 17:38) Ct Angio Chest Contrast (03/15/25 20:06) Vital Signs Date Time Temp Pulse Resp B/P (MAP) Pulse Ox O2 Delivery O2 Flow Rate FiO2 03/15/25 19:35 70 13 97 Nasal Cannula* 2 28 03/15/25 19:35 70 13 106/62 (77) 97 03/15/25 17:25 Nasal Cannula* 2 28 03/15/25 17:18 97.6 65 16 105/62 (76) 93 97.6 03/15/25 16:55 97.6 71 18 113/80 96 97.6 03/15/25 16:40 70 Laboratory Tests Test 03/15/25 17:56 03/15/25 19:47 Lactic Acid Level 3.9 mmol/L (0.4-2.0) *H 2.8 mmol/L (0.4-2.0) *H White Blood Count 12.9 10^3/uL (4.4-10.8) H Medications Medications Dose Ordered Sig/Macario Route Start Time Stop Time Status Last Admin Dose Admin Sodium Chloride 500 ml @ 500 mls/hr Q1H ONCE IV 03/15/25 17:45 03/15/25 18:44 DC 03/15/25 19:40 Departure 1 Departure Time of Disposition: 21:29 Impression: Primary Impression: Autonomic dysfunction Additional Impression: Generalized weakness Disposition: ADMITTED INPATIENT Admit to: Med Surg Condition: Fair Critical Care Note Critical Care Time?: Yes (45 min-critical care time only) Stability Stability form required: Yes Unstable for transfer: Telemetry monitoring (Telemetry monitoring required), ED Physician Assesment (Clinical assesment) Heart Score Heart Score: Heart Score Response (Comments) Value History N/A 0 EKG N/A 0 Age N/A 0 Risk Factors N/A 0 Troponin N/A 0 Total 0 I personally scribed for ZONIA BAEZA MD ([email or web address]) on 03/15/25 at 17:47. Electronically submitted by Edilson Dukes ([email or web address]). ZONIA BAEZA MD Mar 15, 2025 17:47
--- NOTE | 2025-03-15 18:11 | DVH ---
EXAM: XY CHEST PORTABLE HISTORY: sob TECHNIQUE: 1 view of the chest COMPARISON: XY CHEST TWO VIEWS ROUTINE on DOS: 12/02/24 FINDINGS/IMPRESSION: LUNGS: No pleural effusion, consolidation, or pneumothorax MEDIASTINUM: Normal cardiac size. Left anterior chest cardiac device. BONES: No acute osseous abnormality OTHER: None
[2025-03-15 18:12] LABS: Hemoglobin 19.3 g/dL (13.5-17.5); Mean Corpuscular Hemoglobin 32.7 pg (28.0-32.0); Mean Corpuscular Volume 94.8 fL (80.0-100.0); Nucleated Red Blood Cells % 0.0 %
[2025-03-15 18:13] LABS: Hematocrit 56.1 % (41.0-53.0)
[2025-03-15 18:26] LABS: Potassium 4.3 mmol/L (3.5-5.1); Sodium 139 mmol/L (136-145)
[2025-03-15 18:27] LABS: Anion Gap 13 (5-15); Calcium 10.1 mg/dL (8.7-10.4); Carbon Dioxide 28 mmol/L (20-31)
[2025-03-15 18:32] LABS: BUN/Creatinine Ratio 19.5 (10.0-20.0)
[2025-03-15 18:36] LABS: Blood Urea Nitrogen 31 mg/dL (9-23); Chloride 98 mmol/L (98-107); Glucose 204 mg/dL (74-106)
[2025-03-15 18:50] LABS: Lactic Acid w/Reflex 3.9 mmol/L (0.4-2.0)
[2025-03-15 19:35] VITALS: PULSE 70; RESP 13; O2SAT 97
[2025-03-15] MEDS: SODIUM CHLORIDE 0.9% 500 ML IV ONE ×2 (19:40→23:41)
[2025-03-15] MEDS: IOHEXOL 350 MG/ML 100ML IJ ONE (20:24)
--- NOTE | 2025-03-15 21:08 | DVH ---
COMPUTERIZED TOMOGRAPHIC ANGIOGRAPHY OF THE CHEST WITH INTRAVENOUS CONTRAST REASON FOR EXAM: Shortness of breath COMPARISON: XY CHEST PORTABLE on DOS: 03/15/25, XY CHEST TWO VIEWS ROUTINE on DOS: 12/02/24, CT CHEST W ITH CONTRAST on DOS: 12/06/23, CHEST TWO VIEWS ROUTINE on DOS: 04/09/20 TECHNIQUE: The exam was performed on a multidetector spiral scanner. Spiral images were acquired fro m the thoracic inlet through the adrenal glands, during the bolus intravenous administration of cont rast. Multiplanar maximum intensity projection (MIP) images were provided. Radiation optimization: Al l CT scans at this facility use at least one of these dose optimization techniques: Automated exposur e control mA and/or kV adjustment per patient size (includes targeted exams where dose is matched to clinical indication) or iterative reconstruction. CONTRAST ADMINISTERED: 90 mL omnipaque 350 intravenously. RADIATION DOSE: CTDI: 26.42 mGy DLP: 1007.48 mGy-cm FINDINGS: Evaluation of the lung parenchyma is severely degraded by respiratory motion artifacts. Th ere is no lobar consolidation. There is no pleural effusion. There is no pneumothorax. Heart is borde rline enlarged. There is no significant pericardial effusion. There are coronary artery calcificatio ns. There is a cardiac pacer. Evaluation of all the chest structures is degraded by severe motion art ifact. There is no large central pulmonary embolism. There is diffuse thickening of the entire length of the esophagus. The visualized portion of the upper abdomen is grossly unremarkable. No acute osse ous abnormality is identified within the limitations of severe motion artifact. IMPRESSION: No large central pulmonary embolism. The study is severely degraded by motion artifact. Diffuse thickening of the entire length of the esophagus. Correlate clinically for esophagitis and po ssible gastroesophageal reflux.
[2025-03-15] MEDS ORDERED: NITROGLYCERIN 0.4 MG SL TAB SL PRN (23:15)
[2025-03-15] MEDS ORDERED: MORPHINE SULFATE INJ 2 MG/ml SYRG IV PRN (23:15)
[2025-03-15] MEDS ORDERED: HYDROcodone-ACET 5/325MG TAB PO PRN (23:15)
[2025-03-15] MEDS ORDERED: DOCUSATE SOD 100 MG CAP PO PRN (23:15)
[2025-03-15] MEDS ORDERED: ONDANSETRON HCL 4 MG/2 ML VIAL IV PRN (23:15)
[2025-03-16] VITALS (12 sets, daily range): BP systolic 108–163; BP diastolic 72–93; PULSE 59–75; RESP 16–18; TEMP 96.8–98.4; O2SAT 95–100
[2025-03-16 00:29] LABS: INR 1.03 (0.9-1.15); Prothrombin Time 10.9 sec (9.3-11.8)
[2025-03-16] MEDS ORDERED: CLOP75TA70 PO (03:29)
[2025-03-16] MEDS ORDERED: ATOR40TA52 PO (03:30)
[2025-03-16] MEDS: ATORVASTATIN 20 MG TAB PO ONE (04:17)
[2025-03-16] MEDS: LACTATED RINGER'S 1,000 ML IV SCH (04:19)
[2025-03-16] MEDS: LEVOTHYROXINE SODIUM 100 MCG TAB PO SCH (06:43)
[2025-03-16 06:54] LABS: Alanine Aminotransferase 15 U/L (7-40); Alkaline Phosphatase 105 U/L (46-116); Calcium 9.6 mg/dL (8.7-10.4); Carbon Dioxide 28 mmol/L (20-31); Chloride 101 mmol/L (98-107); Glucose 105 mg/dL (74-106); Potassium 4.3 mmol/L (3.5-5.1); Sodium 140 mmol/L (136-145)
[2025-03-16 06:55] LABS: Albumin 4.2 g/dL (3.2-4.8); Anion Gap 11 (5-15); BUN/Creatinine Ratio 18.3 (10.0-20.0); Blood Urea Nitrogen 22 mg/dL (9-23); Total Protein 7.0 g/dL (5.7-8.2)
[2025-03-16 06:58] LABS: Bilirubin, Total 1.2 mg/dL (0.2-1.0)
[2025-03-16 07:08] LABS: Hematocrit 51.4 % (41.0-53.0); Hemoglobin 18.0 g/dL (13.5-17.5); Mean Corpuscular Hemoglobin 33.0 pg (28.0-32.0); Mean Corpuscular Volume 94.1 fL (80.0-100.0); Nucleated Red Blood Cells % 0.4 %
[2025-03-16 07:42] LABS: Cholesterol 159 mg/dL (< 200); HDL Cholesterol 28 mg/dL (40-59); Triglycerides 152 mg/dL (< 150)
--- NOTE | 2025-03-16 07:59 | DVHHPRES ---
History of Present Illness Resident Creating Document: JASON GUERRERO RESIDENT History of Present Illness Patient is a 74-year-old male with past medical history of hypertension, diabetes mellitus, hyperlipidemia, hypothyroidism who came to the ED with chief complaints of presyncope, he states he was getting up to go to the bathroom were taking his 1st steps he felt he was going to fall and called his who helped him lay on the ground. Last week patient underwent a angiogram by Dr. Strong. Patient states that he did not feel dizzy and did not lose consciousness but felt weak since 4 days. He also states that 4 days ago he lost his balance and hit his back without any head trauma. Patient denies any fever chills, nausea, vomiting, diarrhea, shortness for breath or chest pain. On arrival patient was on 2 L of oxygen but today morning he was tolerating room air. Patient denies any sick contacts, recent travel, or injuries. Surgical history: Multiple pacemakers, left hip replacement, bilateral knee replacement, surgery to his left fingers Family history: reviewed , noncontributory Personal history: Denies smoking, drinking, drug use Lives with: Family PCP: Dr. Strong Review of Systems Constitutional: Yes: Weakness; No: Fever, Chills, Sweats, Malaise, Other Eyes: No: Pain, Vision change, Conjunctivae inflammation, Eyelid inflammation, Other, Redness ENT: No: Ear pain, Ear discharge, Nose pain, Nose discharge, Nose congestion, Mouth pain, Mouth swelling, Throat pain, Throat swelling, Other Respiratory: No: Cough, Dry, Shortness of breath, SOB with excertion, Wheezing, Hemoptysis, Pleuritic Pain, Sputum, Wheezing, Other Cardiovascular: No: Chest Pain, Palpitations, Orthopnea, Paroxysmal Noc. Dyspnea, Edema, Lt Headedness, Other Gastrointestinal: No: Nausea, Vomiting, Abdominal Pain, Diarrhea, Constipation, Melena, Hematochezia, Other Genitourinary: No Dysuria, No Frequency, No Incontinence, No Hematuria, No Retention, No Other Musculoskeletal: No: other, neck pain, shoulder pain, arm pain, back pain, hand pain, leg pain, foot pain Skin: No: Rash, Lesions, Jaundice, Bruising, Other Neurological: No: Weakness, Numbness, Incoordination, Change in speech, Confusion, Seizures, Other Allergies: Coded Allergies: Penicillins (Verified Allergy, Unknown, 12/02/24) Medications Current Medications Medications Dose Ordered Sig/Macario Route Start Time Stop Time Status Last Admin Dose Admin Acetaminophen/ Hydrocodone Bitart 1 tab Q4HP PRN PO 03/15/25 23:15 Ondansetron HCl 4 mg Q4HP PRN IV 03/15/25 23:15 Docusate Sodium 100 mg BIDPRN PRN PO 03/15/25 23:15 Pantoprazole Sodium 40 mg DAILY IV 03/16/25 10:00 Lactated Ringer's 1,000 ml @ 50 mls/hr Q20H IV 03/16/25 03:30 03/16/25 04:19 50 MLS/HR Apixaban 2.5 mg BID PO 03/16/25 10:00 Atorvastatin Calcium 40 mg HS PO 03/16/25 22:00 Finasteride 5 mg DAILY PO 03/16/25 10:00 Levothyroxine Sodium 100 mcg QAM PO 03/16/25 07:00 03/16/25 06:43 100 MCG Multivitamins 1 tab DAILY PO 03/16/25 10:00 Cholecalciferol 1,000 unit DAILY PO 03/16/25 10:00 Patient Own Medication 2 tab DAILY PO 03/16/25 10:00 UNV Exam Vital Signs Vital Signs Date Time Temp Pulse Resp B/P (MAP) Pulse Ox O2 Delivery O2 Flow Rate FiO2 03/16/25 05:00 97.5 72 18 163/93 (116) 96 97.5 03/16/25 03:29 Room Air* 0 21 Exam General: Patient alert and oriented in person, place and time. Patient following commands. In no distress, generalized weakness HEENT: Normocephalic, atraumatic, moist mucous membranes Respiratory/pulmonary: Clear lungs bilaterally, vesicular murmurs present in almost all lung helm, no associated crackles or wheezes. Cardiovascular: Normal heart sounds S1 and S2 with no associated murmurs Abdomen: Abdomen nondistended, there is no pain to palpation in any of the abdominal quadrants, no palpable masses. Extremities: There is no peripheral edema present at the lower extremities. Peripheral Pulses: 3+ Radial (R). 3+ Radial (L). 3+ Dorsalis pedis (R). 3+ Dorsalis pedis(L) Skin: No rashes or pruritus, there is no sacral edema present at this time. Neurological: Intact cranial nerves with no focal neurologic deficits Labs/Xrays Labs Test 03/16/25 05:15 03/15/25 23:50 03/15/25 23:24 03/15/25 18:53 Range/Units White Blood Count 10.0 4.4-10.8 10^3/uL Red Blood Count 5.46 4.5-5.90 10^6/uL Hemoglobin 18.0 H 13.5-17.5 g/dL Hematocrit 51.4 41.0-53.0 % Mean Corpuscular Volume 94.1 80.0-100.0 fL Mean Corpuscular Hemoglobin 33.0 H 28.0-32.0 pg Mean Corpuscular Hemoglobin Concent 35.1 32.0-36.0 g/dL Red Cell Distribution Width 13.8 11.8-14.3 % Platelet Count 244 140-450 10^3/uL Mean Platelet Volume 7.6 6.9-10.8 fL Neutrophils (%) (Auto) 72.7 37.0-80.0 % Lymphocytes (%) (Auto) 16.6 10.0-50.0 % Monocytes (%) (Auto) 8.4 0.0-12.0 % Eosinophils (%) (Auto) 2.0 0.0-7.0 % Basophils (%) (Auto) 0.3 0.0-2.0 % Neutrophils # (Auto) 7.3 1.6-8.6 10 ^3/uL Lymphocytes # (Auto) 1.7 0.4-5.4 10 ^3/uL Monocytes # (Auto) 0.8 0-1.3 10 ^3/uL Eosinophils # (Auto) 0.2 0-0.8 10 ^3/uL Basophils # (Auto) 0 0-0.2 10 ^3/uL Nucleated Red Blood Cells 0.4 % Sodium Level 140 136-145 mmol/L Potassium Level 4.3 3.5-5.1 mmol/L Chloride Level 101 98-107 mmol/L Carbon Dioxide Level 28 20-31 mmol/L Anion Gap 11 5-15 Blood Urea Nitrogen 22 9-23 mg/dL Creatinine 1.20 0.700-1.30 mg/dL Glomerular Filtration Rate Calc 64 >90 mL/min BUN/Creatinine Ratio 18.3 10.0-20.0 Serum Glucose 105 74-106 mg/dL Hemoglobin A1c 7.3 H <5.7 % A1C Lactic Acid Level 1.7 0.4-2.0 mmol/L Calcium Level 9.6 8.7-10.4 mg/dL Total Bilirubin 1.2 H 0.2-1.0 mg/dL Aspartate Amino Transferase (AST) 20 13-40 U/L Alanine Aminotransferase (ALT) 15 7-40 U/L Alkaline Phosphatase 105 46-116 U/L B-Type Natriuretic Peptide 97.27 0-100 pg/mL Total Protein 7.0 5.7-8.2 g/dL Albumin 4.2 3.2-4.8 g/dL Triglycerides Level 152 H < 150 mg/dL Cholesterol Level 159 < 200 mg/dL LDL Cholesterol 117 H < 100 mg/dL HDL Cholesterol 28 L 40-59 mg/dL Thyroid Stimulating Hormone (TSH) 3.00 0.55-4.78 uIU/mL Prothrombin Time 10.9 9.3-11.8 sec Prothrombin Time INR 1.03 0.9-1.15 POC Glucose 169 H 70-106 mg/dl Troponin I High Sensitivity 12 </=54 ng/L Test 03/15/25 17:56 Range/Units D-Dimer, Quantitative 1.05 H 0.0-0.49 mg/L FEU SEPSIS Sepsis Screen Date sepsis recognized/suspect: Mar 15, 2025 Time Sepsis recognized/suspect: 1934 Recent Procedure: No On Antibiotic Therapy: No Respiratory Rate >20: No Heart Rate >90: No Temp<36 C (96.8 F) or >38.3 C: No SBP <90 or MAP <65 mmHG: No New Acute Mental Status Change: No Is the patient on CPAP, BIPAP,: No Physician Orders Pantoprazole (Protonix) (03/16/25 10:00) Bilat Lower Dvt (03/16/25 03:21) Covid19 Antigen Lety (03/16/25 ) Lactated Ringer's (03/16/25 03:30) Apixaban (Eliquis) (03/16/25 10:00) Atorvastatin (Lipitor) (03/16/25 22:00) Orthostatic Vital Signs (03/16/25 03:29) * Cardiology Consult (03/16/25 03:29) Cardiac Diet-2gna,Lofat,Lochol (03/16/25 Breakfast) Fall Precautions Initiated (03/16/25 03:29) Pt Request For Service (03/16/25 03:29) Vitamin B12 (03/16/25 03:29) Carotid Duplx W Color Dop (03/16/25 03:29) Fall Risk Precautions In Place QSHIFT (03/16/25 03:29) Finasteride Tablet (Proscar Tablet) (03/16/25 10:00) Levothyroxine Tablet (Synthroid Tablet) (03/16/25 07:00) Multiple Vitamin Tablet (Mvi Tab) (03/16/25 10:00) Cholecalciferol Tablet (Vitamin D3 Table (03/16/25 10:00) (Nf) Lisinopril & Hydrochlorothiazi (Zes (03/16/25 10:00) Board Operator To Assess Pacemaker (03/16/25 07:28) Vital Signs Date Time Temp Pulse Resp B/P (MAP) Pulse Ox O2 Delivery O2 Flow Rate FiO2 03/16/25 05:00 97.5 72 18 163/93 (116) 96 97.5 03/16/25 03:29 75 18 98 Room Air* 0 21 03/16/25 01:00 96.8 59 17 142/85 (104) 100 96.8 Laboratory Tests Test 03/16/25 05:15 Lactic Acid Level 1.7 mmol/L (0.4-2.0) White Blood Count 10.0 10^3/uL (4.4-10.8) Medications Medications Dose Ordered Sig/Macario Route Start Time Stop Time Status Last Admin Dose Admin Atorvastatin Calcium 40 mg ONCE ONCE PO 03/16/25 03:30 03/16/25 03:39 DC 03/16/25 04:17 40 MG Lactated Ringer's 1,000 ml @ 50 mls/hr Q20H IV 03/16/25 03:30 03/16/25 04:19 50 MLS/HR Levothyroxine Sodium 100 mcg QAM PO 03/16/25 07:00 03/16/25 06:43 100 MCG Sodium Chloride 500 ml @ 500 mls/hr Q1H ONCE IV 03/15/25 23:30 03/16/25 00:29 DC 03/15/25 23:41 500 MLS/HR Assessment/Plan Assessment/Plan # presyncope probably due to pacemaker malfunction # 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 The study is severely degraded by motion artifact. Diffuse thickening of the entire length of the esophagus. Correlate clinically for esophagitis and possible gastroesophageal reflux. # hypoxic respiratory failure: Was on 2 L oxygen now on room air # chronic leukocytosis # hyperbilirubinemia # lactic acidosis # Diabetes mellitus-HbA1c 7.1 #History of gout: Continue home meds #History of BPH: Continue finasteride # history of hyperlipidemia: Continue atorvastatin # hypothyroidism: Continue levothyroxine # history of vitamin-D deficiency: Continue vitamin-D supplementation PPI prophylaxis: Not indicated DVT prophylaxis: Eliquis Goals of care addressed with the patient for more than 31 minutes: Full code status Case discussed with Dr. Merino , patient and nurse Plan discussed with: Patient My Orders Orders - JASON GUERRERO RESIDENT Procedure Category Date Status Time Admit ADMIT 03/15/25 Transmitted 23:10 Allergies GLORIA 03/15/25 In Process 23:10 Code Status CODE 03/15/25 Transmitted 23:10 Hydrocodone-Acet PHA 03/15/25 In Process 5/325mg Tab ([place] 23:15 Docusate Sodium PHA 03/15/25 In Process Capsule ([place] 23:15 Condition: Serious GLORIA 03/15/25 In Process 23:10 Bedrest With Bathroom GLORIA 03/15/25 In Process Privileg 23:10 Oxygen By Nasal RT 03/15/25 Transmitted Cannula 23:10 Stat Ekg For Chest GLORIA 03/15/25 In Process Pain 23:10 Notify Md Of Changes [facility] [place] 03/15/25 In Process From Base 23:10 Tobacco Stemmer For [facility] [place] 03/15/25 In Process 24 Hours 23:10 Emergency Dysrhythmia GLORIA 03/15/25 In Process Protocol 23:10 Rhythm Strips Once GLORIA 03/15/25 In Process Every Shift 23:10 Ondansetron Hcl PHA 03/15/25 In Process (Zofran) 23:15 Pantoprazole PHA 03/16/25 In Process (Protonix) 10:00 Finasteride Tablet PHA 03/16/25 In Process (Proscar Tablet) 10:00 Levothyroxine Tablet PHA 03/16/25 In Process (Synthroid Tablet) 07:00 Multiple Vitamin PHA 03/16/25 In Process Tablet (Mvi Tab) 10:00 Cholecalciferol PHA 03/16/25 In Process Tablet (Vitamin D3 10:00 (Nf) Lisinopril & PHA 03/16/25 Logged Hydrochlorothiazi (Zes 10:00 Date of Service: Mar 16, 2025 Billing Provider: KRISS MERINO MD Common Visit Codes: 83123-[id number] INP/OBS CARE (HIGH) Secondary Visit Codes: 03143-[id number] CARE PLAN 30 MINUTES JASON GUERRERO RESIDENT Mar 16, 2025 07:59
--- NOTE | 2025-03-16 09:38 | DVHPNRES ---
Progress Note Date Seen: Mar 16, 2025 Resident Creating Document: DAYO MARTIN RESIDENT Medical Necessity Reason Pt with a Central, PICC or Fol: No Subjective Review of Systems Patient is a 74-year-old male with past medical history of hypertension, diabetes mellitus, hyperlipidemia, hypothyroidism who came to the ED with chief complaints of presyncope, he states he was getting up to go to the bathroom were taking his 1st steps he felt he was going to fall and called his who helped him lay on the ground. Patient feeling experienced of nausea and sweating but no chest pain, blurry vision or hitting his head. Patient states that he did not feel dizzy and did not lose consciousness but felt weak last 4 days. Patient denies any fever chills, nausea, vomiting, diarrhea, shortness for breath or chest pain. On arrival patient was on 2 L of oxygen but today morning he was tolerating room air. Patient denies any sick contacts, recent travel, or injuries. Angiogram on 12/04/2024 shows stent LAD by Dr. Strong, Past medical history: As above Surgical history: Multiple pacemakers 1997, left hip replacement, bilateral knee replacement, surgery to his left fingers Family history: CAD-parents Personal history: Denies smoking, drinking, drug use Lives with: Family PCP: Dr. Strong Patient evaluated and seen on bedside. Not in acute distress. Lactic acidosis- resolved. Pacemaker substation maintenance technician called [phone], replied he will check ppm. Echo ordered . EKG shows ventricular paced rhythm, QTC 525, HR 70. Objective vital signs Vital Sign Date Time Temp Pulse Resp B/P (MAP) Pulse Ox O2 Delivery O2 Flow Rate FiO2 03/16/25 09:00 98.4 71 18 111/75 (87) 98 98.4 03/16/25 03:29 Room Air* 0 21 Total Intake and Output 03/15/25 03/15/25 03/16/25 15:00 23:00 07:00 Intake Total 500 ml Balance 500 ml medications Current Medications Medications Dose Ordered Sig/Macario Route Start Time Stop Time Status Last Admin Dose Admin Acetaminophen/ Hydrocodone Bitart 1 tab Q4HP PRN PO 03/15/25 23:15 Ondansetron HCl 4 mg Q4HP PRN IV 03/15/25 23:15 Docusate Sodium 100 mg BIDPRN PRN PO 03/15/25 23:15 Pantoprazole Sodium 40 mg DAILY IV 03/16/25 10:00 Lactated Ringer's 1,000 ml @ 50 mls/hr Q20H IV 03/16/25 03:30 03/16/25 04:19 50 MLS/HR Apixaban 2.5 mg BID PO 03/16/25 10:00 Atorvastatin Calcium 40 mg HS PO 03/16/25 22:00 Finasteride 5 mg DAILY PO 03/16/25 10:00 Levothyroxine Sodium 100 mcg QAM PO 03/16/25 07:00 03/16/25 06:43 100 MCG Multivitamins 1 tab DAILY PO 03/16/25 10:00 Cholecalciferol 1,000 unit DAILY PO 03/16/25 10:00 Patient Own Medication 2 tab DAILY PO 03/16/25 10:00 UNV Lisinopril 40 mg DAILY PO 03/16/25 10:00 Hydrochlorothiazide 25 mg DAILY PO 03/16/25 10:00 Examination: GENERAL:Normal, HEENT:Normal, NECK:Normal, LUNGS:Normal, CVS:Abnormal (Pacemaker in place), ABDOMEN:Normal, MSK:Normal, NEURO:Normal laboratory and microbiology Laboratory Tests 03/16/25 05:15 Test 03/16/25 05:15 Range/Units Serum Glucose 105 74-106 mg/dL Labs and/or images reviewed: Labs reviewed by me, Image(s) reviewed by me Problem List/Assessment/Plan Problem List/Assessment/Plan # Presyncope probably due to pacemaker malfunction # Acute on chronic systolic heart failure , EF 45-50% -coronary angiogram done on 12/07/2024-angioplasty, thrombectomy and stent placed in LAD. - CXR- no acute cardiopulmonary disease, cardiac device present -EKG shows ventricular paced rhythm, QTC 525, HR 70. - Plug Stitcher to assess pacemaker to assess Biotronik [phone], replete we will check PPM - started Eliquis - Ruled out orthostatic vitals - cardiac duplex :No hemodynamically significant stenosis by velocity criteria. Mild atherosclerotic plaque. - Venous duplex bilateral lower ext: Patient's of deep vein thromboses . - BNP 97.27 - Hydrochlorothiazide 25 mg p.o. daily - Lisinopril 40 mg p.o. daily - Cardiology consult; Dr. Strong -physical therapy ordered -fall precautions # Ruled out PE - CT angio showed No large central pulmonary embolism. The study is severely degraded by motion artifact. Diffuse thickening of the entire length of the esophagus. Correlate clinically for esophagitis and possible gastroesophageal reflux. # acute hypoxic respiratory failure: Was on 2 L oxygen via NC; now on room air. # SIRS , not sepsis Leukocytosis, lactic acidosis- resolved. # lactic acidosis lactic acid 3.9> 2.8> 1.7 # Diabetes mellitus with hyperglycemia HbA1c 7.3 Home medication Lantus and Trulicity With a glucose and insulin sliding scale #Gout: Continue home meds-allopurinol 300 mg #Hyperlipidemia: Continue atorvastatin # Hypothyroidism: Continue levothyroxine # Vitamin-D deficiency: Continue vitamin-D supplementation # Benign prostatic hyperplasia : finasteride 5 mg p.o. qd # Hemoconcentration possibly dehydration # Hyperbilirubinemia total bilirubin 1.2, AST ALT in normal range # #COREY due to vasomotor nephropathy creatinine 1.59 and repeat creatinine 1.20 -Renal diet -Avoid nephrotoxic drugs due to vasomotor PPI prophylaxis: pantoprazole DVT prophylaxis: Eliquis Fall precaution Goals of care discussed with the patient and his for 22 minutes: Full code status . Case discuss with Dr. Tolentino. Plan discussed with: Patient, Spouse, Other (Nurse) Addendum Addendum Addendum I was physically present for the triana portions of the service provided to patient by THE RESIDENT. I have reviewed the documentation, discussed the case with resident and agree with the resident's documentation except as noted. Also the patient's clinical case was discussed with the patient's nurse. This medical document was created using an electronic medical record system with computerized dictation system. Although this document has been carefully reviewed, there might still be some phonetic and typographical errors. These areas are purely typographical due to imperfections of the software programs, and do not reflect any compromise in the patient's medical care. Late signature. Date of Service: Mar 16, 2025 Billing Provider: JOSE TOLENTINO MD Common Visit Codes: [id number] INP/OBS CARE(HIGH) Secondary Visit Codes: [id number] CARE PLAN 30 MINUTES (22 minutes) DAYO MARTIN RESIDENT Mar 16, 2025 09:38 JOSE TOLENTINO MD Mar 17, 2025 12:36
[2025-03-16] MEDS: PANTOPRAZOLE 40 MG/10 ML VIAL INJ IV SCH (10:00)
[2025-03-16] MEDS ORDERED: HYDROCHLOROTHIAZI PO SCH (10:00)
[2025-03-16] MEDS ORDERED: LISINOPRIL PO SCH (10:00)
[2025-03-16] MEDS: LISINOPRIL 20 MG TAB PO SCH (11:35)
[2025-03-16] MEDS: FINASTERIDE 5 MG TAB PO SCH (11:36)
[2025-03-16] MEDS: MULTIPLE VITAMIN TAB PO SCH (11:36)
[2025-03-16] MEDS: hydroCHLOROthiazide 25 MG TAB PO SCH (11:36)
[2025-03-16] MEDS: APIXABAN 2.5 MG TAB PO SCH (11:37)
[2025-03-16] MEDS: CHOLECALCIFEROL (VITD3) 1,000UNIT=25mCg TAB PO SCH (11:37)
--- NOTE | 2025-03-16 11:56 | DVH ---
CLINICAL HISTORY: r/o VTE TECHNIQUE: Color and duplex doppler imagine of the bilateral lower extremity veins was performed. Ves fabio compression and augmentation if possible was also performed. COMPARISON: None FINDINGS: Right lower Extremity: Right common femoral vein: Normal compressibility and flow. Right superficial femoral vein: Normal compressibility and flow. Right popliteal vein: Normal compressibility and flow. Proximal calf veins demonstrate flow. Left lower Extremity: Left common femoral vein: Normal compressibility and flow. Left superficial femoral vein: Normal compressibility and flow. Left popliteal vein: Normal compressibility and flow. Proximal calf veins demonstrate flow. IMPRESSION: NO SONOGRAPHIC EVIDENCE FOR DEEP VENOUS THROMBOSIS IN THE BILATERAL LOWER EXTREMITY VEINS.
--- NOTE | 2025-03-16 12:08 | DVH ---
Indication: rule out obstruction Technique: Real-time ultrasound images of the neck vessels with cole-scale, color and wave Doppler we re obtained. Comparison: CAROTID DUPLX W COLOR DOP on DOS: 06/21/22 Findings: Mild atherosclerotic plaque bilaterally. The following peak systolic velocities were recorded in cm/sec: Right internal carotid: 89 Right common carotid: 107 Right external carotid: 72 Right internal/common carotid ratio: 0.8 Left internal carotid: 81 Left common carotid: 107 Left external carotid: 96 Left internal/common carotid ratio: 0.8 Right vertebral artery: Patent with normal antegrade direction of flow. Left vertebral artery: Patent with normal antegrade direction of flow. Impression: No hemodynamically significant stenosis by velocity criteria. Mild atherosclerotic plaque.
[2025-03-16 16:06] LABS: Urine Protein, UAD TRACE (Negative)
[2025-03-16] MEDS: ATORVASTATIN 20 MG TAB PO SCH (23:20)
[2025-03-17] VITALS (8 sets, daily range): BP systolic 119–152; BP diastolic 78–91; PULSE 45–74; RESP 17–18; TEMP 97.8–98.3; O2SAT 93–99
[2025-03-17 05:41] LABS: Hematocrit 51.6 % (41.0-53.0); Hemoglobin 17.7 g/dL (13.5-17.5); Mean Corpuscular Hemoglobin 32.3 pg (28.0-32.0); Mean Corpuscular Volume 94.0 fL (80.0-100.0); Nucleated Red Blood Cells % 0.2 %
[2025-03-17 05:47] LABS: Anion Gap 12 (5-15); Carbon Dioxide 25 mmol/L (20-31); Chloride 99 mmol/L (98-107); Potassium 3.9 mmol/L (3.5-5.1)
[2025-03-17 05:48] LABS: Calcium 9.5 mg/dL (8.7-10.4)
[2025-03-17 05:49] LABS: Sodium 136 mmol/L (136-145)
[2025-03-17 05:53] LABS: BUN/Creatinine Ratio 12.8 (10.0-20.0); Blood Urea Nitrogen 15 mg/dL (9-23)
[2025-03-17 05:57] LABS: Glucose 114 mg/dL (74-106)
--- NOTE | 2025-03-17 09:10 | DVHPN2 ---
Progress Note - Dictate Date Seen: Mar 17, 2025 Medical Necessity Reason Pt with a Central, PICC or Fol: No Subjective PT WITH NEAR SYNCOPE HX OF AFIB CAD S/P PTCA STENT The patient is a 74 years old with a history of sick sinus syndrome, status post permanent pacemaker implantation, history of chronic AFib, now just V-paced. Ejection fraction has come down to like 45-50%. Because of the change in EF, it is felt that the patient should undergo coronary angiography. Furthermore, he is having symptoms of chest pain as well. The patient is now to undergo left heart catheterization. Further recommendations after the angiogram. PERTINENT MEDICAL HISTORY: Significant for hypertension, hyperlipidemia, atrial fibrillation, hypercoagulable state, history of congestive heart failure and heart failure with reduced ejection fraction. Secondary to V pacing, I believe. However, coronary artery disease cannot be excluded at this time because of rapid change in EF. REVIEW OF SYSTEMS: He denies any fever, chills, melena, hematochezia, hematemesis, or hemoptysis. No hematuria. He denies any history of CVA. No history of melena. No history of irritable bowel syndrome. No rheumatologic disorder such as lupus or rheumatoid arthritis. No history of inflammatory bowel disease. vital signs Vital Sign Date Time Temp Pulse Resp B/P (MAP) Pulse Ox O2 Delivery O2 Flow Rate FiO2 03/17/25 05:00 62 17 119/81 (94) 94 03/17/25 05:00 97.8 97.8 03/16/25 20:00 Room Air* 0 21 Total Intake and Output 03/16/25 03/16/25 03/17/25 15:00 23:00 07:00 Intake Total 437 ml 400 ml Output Total 525 ml Balance 437 ml -125 ml medications Current Medications Medications Dose Ordered Sig/Macario Route Start Time Stop Time Status Last Admin Dose Admin Acetaminophen/ Hydrocodone Bitart 1 tab Q4HP PRN PO 03/15/25 23:15 Ondansetron HCl 4 mg Q4HP PRN IV 03/15/25 23:15 Docusate Sodium 100 mg BIDPRN PRN PO 03/15/25 23:15 Pantoprazole Sodium 40 mg DAILY IV 03/16/25 10:00 03/16/25 10:00 40 MG Lactated Ringer's 1,000 ml @ 50 mls/hr Q20H IV 03/16/25 03:30 03/16/25 04:19 50 MLS/HR Apixaban 2.5 mg BID PO 03/16/25 10:00 03/16/25 23:20 2.5 MG Atorvastatin Calcium 40 mg HS PO 03/16/25 22:00 03/16/25 23:20 40 MG Finasteride 5 mg DAILY PO 03/16/25 10:00 03/16/25 11:36 5 MG Levothyroxine Sodium 100 mcg QAM PO 03/16/25 07:00 03/17/25 06:04 100 MCG Multivitamins 1 tab DAILY PO 03/16/25 10:00 03/16/25 11:36 1 TAB Cholecalciferol 1,000 unit DAILY PO 03/16/25 10:00 03/16/25 11:37 1,000 UNIT Patient Own Medication 2 tab DAILY PO 03/16/25 10:00 UNV Lisinopril 40 mg DAILY PO 03/16/25 10:00 03/16/25 11:35 40 MG Hydrochlorothiazide 25 mg DAILY PO 03/16/25 10:00 03/16/25 11:36 25 MG objective PHYSICAL EXAMINATION: VITAL SIGNS: Blood pressure is 132/80, pulse 60 and regular. O2 saturation is 94% on room air. HEENT: Pupils are reactive. Sclerae are anicteric. Funduscopic exam shows no AV nicking. No exudates. No papilledema. Extraocular muscles are intact. Tympanic membranes are negative. Oral mucosa moist. Posterior pharynx without any exudate. NECK: Carotid pulses are 2+ and symmetrical. No JVD appreciated. No cervical adenopathy. No supraclavicular adenopathy. PULMONARY: Clear to auscultation. Tympanic to percussion. CARDIOVASCULAR: Regular rate without S3, without S4. PMI is not displaced. ABDOMEN: Obese, unable to appreciate organomegaly. SKIN: Unremarkable. EXTREMITIES: 2+ pulses bilaterally. laboratory and microbiology Laboratory Tests 03/17/25 04:25 Test 03/17/25 04:25 Range/Units Serum Glucose 114 H 74-106 mg/dL Problem List NEAR SYNCOPE LEUKOCYTOSIS SECONDARY POLYCYTHEMIA ORG HD DIASTOLIC DYSFUNCTION CAD S/P PTCA STENT 12/07 AFIB HYPERCOAGULOPATHY HTN ESOPHAGITIS Assessment/Plan LAB R/O INFECTION R/O SSS PROTON INHIBITOR CARAFATE Plan discussed with: Patient, Spouse STEVE PEARL MD Mar 17, 2025 09:10
--- NOTE | 2025-03-17 19:24 | DVHPNRES ---
Progress Note Date Seen: Mar 17, 2025 Resident Creating Document: DAYO MARTIN RESIDENT Medical Necessity Reason Pt with a Central, PICC or Fol: No Subjective Review of Systems Patient is a 74-year-old male with past medical history of hypertension, diabetes mellitus, hyperlipidemia, hypothyroidism who came to the ED with chief complaints of presyncope, he states he was getting up to go to the bathroom were taking his 1st steps he felt he was going to fall and called his who helped him lay on the ground. Patient feeling experienced of nausea and sweating but no chest pain, blurry vision or hitting his head. Patient states that he did not feel dizzy and did not lose consciousness but felt weak last 4 days. Patient denies any fever chills, nausea, vomiting, diarrhea, shortness for breath or chest pain. On arrival patient was on 2 L of oxygen but today morning he was tolerating room air. Patient denies any sick contacts, recent travel, or injuries. Angiogram on 12/04/2024 shows stent LAD by Dr. Strong, Past medical history: As above Surgical history: Multiple pacemakers 1997, left hip replacement, bilateral knee replacement, surgery to his left fingers Family history: CAD-parents Personal history: Denies smoking, drinking, drug use Lives with: Family PCP: Dr. Strong Patient evaluated and seen on bedside. Not in acute distress. Lactic acidosis- resolved. MRI leads are unsafe as per [facility]. CT myelogram ordered. Spouse on bedside and discussed about management plan. Patient currently denies any fever, chest pain, SOB or any focal neurological weakness. Patient seen by switchboard mechanic Dr. Strong today and recommendation appreciated. Objective vital signs Vital Sign Date Time Temp Pulse Resp B/P (MAP) Pulse Ox O2 Delivery O2 Flow Rate FiO2 03/17/25 16:39 97.8 70 18 130/88 (102) 96 97.8 03/17/25 08:00 Room Air* 0 21 Total Intake and Output 03/16/25 03/16/25 03/17/25 15:00 23:00 07:00 Intake Total 437 ml 400 ml Output Total 525 ml Balance 437 ml -125 ml medications Current Medications Medications Dose Ordered Sig/Macario Route Start Time Stop Time Status Last Admin Dose Admin Acetaminophen/ Hydrocodone Bitart 1 tab Q4HP PRN PO 03/15/25 23:15 Ondansetron HCl 4 mg Q4HP PRN IV 03/15/25 23:15 Docusate Sodium 100 mg BIDPRN PRN PO 03/15/25 23:15 Pantoprazole Sodium 40 mg DAILY IV 03/16/25 10:00 03/17/25 10:22 40 MG Lactated Ringer's 1,000 ml @ 50 mls/hr Q20H IV 03/16/25 03:30 03/16/25 04:19 50 MLS/HR Apixaban 2.5 mg BID PO 03/16/25 10:00 03/17/25 10:25 2.5 MG Atorvastatin Calcium 40 mg HS PO 03/16/25 22:00 03/16/25 23:20 40 MG Finasteride 5 mg DAILY PO 03/16/25 10:00 03/17/25 10:22 5 MG Levothyroxine Sodium 100 mcg QAM PO 03/16/25 07:00 03/17/25 06:04 100 MCG Multivitamins 1 tab DAILY PO 03/16/25 10:00 03/17/25 10:22 1 TAB Cholecalciferol 1,000 unit DAILY PO 03/16/25 10:00 03/17/25 10:24 1,000 UNIT Patient Own Medication 2 tab DAILY PO 03/16/25 10:00 UNV Lisinopril 40 mg DAILY PO 03/16/25 10:00 03/17/25 10:24 40 MG Hydrochlorothiazide 25 mg DAILY PO 03/16/25 10:00 03/17/25 10:25 25 MG Examination General Appearance: Not in acute distress HEENT: Pale Conjuntivae (L), Pale Conjuntivae (R), Pharynx Normal, TMs Normal Neck: Full Range of Motion, Non-Tender, Normal, Normal Inspection Respiratory: Chest Non-Tender, Decreased Breath Sounds, Lungs Clear, No Accessory Muscle Use, Respiratory Distress Cardiovascular: No Edema, No JVD, No Murmur, No Gallop, Normal Peripheral Pulses, Regular Rate/Rhythm Gastrointestinal: No Organomegaly, Non Tender, No Pulsatile Mass, Normal Bowel Sounds, Soft Extremities: No calf tenderness, Normal capillary refill, Non-tender, No pedal edema, Other (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 Resulted Problem List/Assessment/Plan Problem List/Assessment/Plan # Presyncope probably due to pacemaker malfunction # Acute on chronic systolic heart failure , EF 45-50% -coronary angiogram done on 12/07/2024-angioplasty, thrombectomy and stent placed in LAD. - CXR- no acute cardiopulmonary disease, cardiac device present -EKG shows ventricular paced rhythm, QTC 525, HR 70. Does not sense atrium, AV dissociation. - Tin Can Feeder to assess pacemaker to assess Bi[employer]ronik [id number], replete we will check PPM - started Eliquis - Ruled out orthostatic vitals - cardiac duplex :No hemodynamically significant stenosis by velocity criteria. Mild atherosclerotic plaque. - Venous duplex bilateral lower ext: Patient's of deep vein thromboses . - BNP 97.27 - Hydrochlorothiazide 25 mg p.o. daily - Lisinopril 40 mg p.o. daily - Cardiology recommended labs to rule out infection, PPI Carafate, and rule out SSS # Low-back pain Patient had history of fall. Lab shows leukocytosis CT myelogram ordered to rule out spinal abscess. # Ruled out PE - CT angio showed No large central pulmonary embolism. The study is severely degraded by motion artifact. Diffuse thickening of the entire length of the esophagus. Correlate clinically for esophagitis and possible gastroesophageal reflux. # Hypoxic respiratory failure: Was on 2 L oxygen via NC now on room air. # SIRS , not sepsis Leukocytosis, lactic acidosis- resolved. # Hactic acidosis lactic acid 3.9> 2.8> 1.7 Adequate hydration as tolerated # Diabetes mellitus with hyperglycemia HbA1c 7.3 Home medication Lantus, stool and Trulicity With a glucose and insulin sliding scale #Gout: Allopurinol 300 mg #Hyperlipidemia: Continue atorvastatin # Hypothyroidism: Continue levothyroxine # Vitamin-D deficiency: Continue vitamin-D supplementation # Benign prostatic hyperplasia : finasteride 5 mg p.o. qd # Hemoconcentration possibly dehydration # Hyperbilirubinemia -total bilirubin 1.2, AST ALT in normal range # #COREY due to vasomotor nephropathy creatinine 1.59 and repeat creatinine 1.20 -Renal diet -Avod nephrotoxic drugs due to vasomotor PPI prophylaxis: pantoprazole DVT prophylaxis: Lovenox Fall precaution Goals of care addressed with the patient for more than 22 minutes: Full code status . Case discuss with Dr. Leal Plan discussed with: Patient, Other (Nurse, spouse) My Orders My Orders Orders - DAYO MARTIN RESIDENT Procedure Category Date Status Time Myelogram Lumbar Spine XY 03/17/25 Logged 19:09 Date of Service: Mar 17, 2025 Billing Provider: VAL LEAL MD Common Visit Codes: [id number] INP/OBS CARE(HIGH) DAYO MARTIN RESIDENT Mar 17, 2025 19:24 SCOT PERERA RESIDENT Mar 20, 2025 01:45 VAL LEAL MD Mar 20, 2025 22:21
[2025-03-18] VITALS (8 sets, daily range): BP systolic 127–152; BP diastolic 72–88; PULSE 54–96; RESP 16; TEMP 97.6–98.4; O2SAT 95–97
[2025-03-18 09:47] LABS: Hematocrit 48.1 % (41.0-53.0); Hemoglobin 16.6 g/dL (13.5-17.5); Mean Corpuscular Hemoglobin 32.5 pg (28.0-32.0); Mean Corpuscular Volume 94.0 fL (80.0-100.0); Nucleated Red Blood Cells % 0.0 %
[2025-03-18 09:58] LABS: Potassium 3.6 mmol/L (3.5-5.1)
[2025-03-18 09:59] LABS: Anion Gap 8 (5-15); Calcium 8.9 mg/dL (8.7-10.4); Carbon Dioxide 29 mmol/L (20-31)
[2025-03-18 10:04] LABS: BUN/Creatinine Ratio 15.3 (10.0-20.0); Blood Urea Nitrogen 18 mg/dL (9-23)
[2025-03-18 10:07] LABS: Chloride 98 mmol/L (98-107); Glucose 212 mg/dL (74-106); Sodium 135 mmol/L (136-145)
--- NOTE | 2025-03-18 13:02 | DVHPN2 ---
Progress Note - Dictate Date Seen: Mar 18, 2025 Medical Necessity Reason Pt with a Central, PICC or Fol: No Subjective PT WITH NEAR SYNCOPE HX OF AFIB CAD S/P PTCA STENT The patient is a 74 years old with a history of sick sinus syndrome, status post permanent pacemaker implantation, history of chronic AFib, now just V-paced. Ejection fraction has come down to like 45-50%. Because of the change in EF, it is felt that the patient should undergo coronary angiography. Furthermore, he is having symptoms of chest pain as well. The patient is now to undergo left heart catheterization. Further recommendations after the angiogram. PERTINENT MEDICAL HISTORY: Significant for hypertension, hyperlipidemia, atrial fibrillation, hypercoagulable state, history of congestive heart failure and heart failure with reduced ejection fraction. Secondary to V pacing, I believe. However, coronary artery disease cannot be excluded at this time because of rapid change in EF. REVIEW OF SYSTEMS: He denies any fever, chills, melena, hematochezia, hematemesis, or hemoptysis. No hematuria. He denies any history of CVA. No history of melena. No history of irritable bowel syndrome. No rheumatologic disorder such as lupus or rheumatoid arthritis. No history of inflammatory bowel disease. vital signs Vital Sign Date Time Temp Pulse Resp B/P (MAP) Pulse Ox O2 Delivery O2 Flow Rate FiO2 03/18/25 09:29 127/72 03/18/25 08:41 97.6 54 16 96 97.6 03/18/25 08:00 Room Air* 0 21 Total Intake and Output 03/17/25 03/17/25 03/18/25 15:00 23:00 07:00 Intake Total 807 ml 300 ml Balance 807 ml 300 ml medications Current Medications Medications Dose Ordered Sig/Macario Route Start Time Stop Time Status Last Admin Dose Admin Acetaminophen/ Hydrocodone Bitart 1 tab Q4HP PRN PO 03/15/25 23:15 Ondansetron HCl 4 mg Q4HP PRN IV 03/15/25 23:15 Docusate Sodium 100 mg BIDPRN PRN PO 03/15/25 23:15 Pantoprazole Sodium 40 mg DAILY IV 03/16/25 10:00 03/18/25 09:29 40 MG Lactated Ringer's 1,000 ml @ 50 mls/hr Q20H IV 03/16/25 03:30 9/1/25 04:19 50 MLS/HR Apixaban 2.5 mg BID PO 03/16/25 10:00 03/18/25 09:28 2.5 MG Atorvastatin Calcium 40 mg HS PO 03/16/25 22:00 03/17/25 21:51 40 MG Finasteride 5 mg DAILY PO 03/16/25 10:00 03/18/25 09:28 5 MG Levothyroxine Sodium 100 mcg QAM PO 03/16/25 07:00 03/18/25 06:15 100 MCG Multivitamins 1 tab DAILY PO 03/16/25 10:00 03/18/25 09:29 1 TAB Cholecalciferol 1,000 unit DAILY PO 03/16/25 10:00 03/18/25 09:28 1,000 UNIT Patient Own Medication 2 tab DAILY PO 03/16/25 10:00 UNV Lisinopril 40 mg DAILY PO 03/16/25 10:00 03/18/25 09:28 40 MG Hydrochlorothiazide 25 mg DAILY PO 03/16/25 10:00 03/18/25 09:29 25 MG objective PHYSICAL EXAMINATION: VITAL SIGNS: Blood pressure is 132/80, pulse 60 and regular. O2 saturation is 94% on room air. HEENT: Pupils are reactive. Sclerae are anicteric. Funduscopic exam shows no AV nicking. No exudates. No papilledema. Extraocular muscles are intact. Tympanic membranes are negative. Oral mucosa moist. Posterior pharynx without any exudate. NECK: Carotid pulses are 2+ and symmetrical. No JVD appreciated. No cervical adenopathy. No supraclavicular adenopathy. PULMONARY: Clear to auscultation. Tympanic to percussion. CARDIOVASCULAR: Regular rate without S3, without S4. PMI is not displaced. ABDOMEN: Obese, unable to appreciate organomegaly. SKIN: Unremarkable. EXTREMITIES: 2+ pulses bilaterally. laboratory and microbiology Laboratory Tests 03/18/25 09:26 Test 03/18/25 09:26 Range/Units Serum Glucose 212 H 74-106 mg/dL Problem List NEAR SYNCOPE LEUKOCYTOSIS SECONDARY POLYCYTHEMIA ORG HD DIASTOLIC DYSFUNCTION CAD S/P PTCA STENT 12/07 AFIB HYPERCOAGULOPATHY HTN ESOPHAGITIS Assessment/Plan LAB R/O INFECTION R/O SSS PROTON INHIBITOR CARAFATE ATRIAL LEAD FAILURE NEED ATRIAL LEAD IN AM Plan discussed with: Patient STEVE PEARL MD Mar 18, 2025 13:02
[2025-03-18] MEDS: LIDOCAINE 2%HCL (LOCAL ANESTH.) INJ 10ml MDV ONE (13:33)
--- NOTE | 2025-03-18 16:34 | DVHPNRES ---
Progress Note Date Seen: Mar 18, 2025 Resident Creating Document: DAYO MARTIN RESIDENT Medical Necessity Reason Pt with a Central, PICC or Fol: No Subjective Review of Systems Patient is a 74-year-old male with past medical history of hypertension, diabetes mellitus, hyperlipidemia, hypothyroidism who came to the ED with chief complaints of presyncope, he states he was getting up to go to the bathroom were taking his 1st steps he felt he was going to fall and called his who helped him lay on the ground. Patient feeling experienced of nausea and sweating but no chest pain, blurry vision or hitting his head. Patient states that he did not feel dizzy and did not lose consciousness but felt weak last 4 days. Patient denies any fever chills, nausea, vomiting, diarrhea, shortness for breath or chest pain. On arrival patient was on 2 L of oxygen but today morning he was tolerating room air. Patient denies any sick contacts, recent travel, or injuries. Angiogram on 12/04/2024 shows stent LAD by Dr. Strong, Past medical history: As above Surgical history: Multiple pacemakers 1997, left hip replacement, bilateral knee replacement, surgery to his left fingers Family history: CAD-parents Personal history: Denies smoking, drinking, drug use Lives with: Family PCP: Dr. Strong Patient evaluated and seen on bedside. No acute events overnight. Spouse on bedside and discussed about the management plan. Factory Hand Dr. Chaidez we will follow atrial pacemaker lead tomorrow. CT myelogram done today and report pending. Objective vital signs Vital Sign Date Time Temp Pulse Resp B/P (MAP) Pulse Ox O2 Delivery O2 Flow Rate FiO2 03/18/25 13:39 98.4 58 16 145/85 (105) 97 98.4 03/18/25 08:00 Room Air* 0 21 Total Intake and Output 03/17/25 03/17/25 03/18/25 15:00 23:00 07:00 Intake Total 807 ml 300 ml Balance 807 ml 300 ml medications Current Medications Medications Dose Ordered Sig/Macario Route Start Time Stop Time Status Last Admin Dose Admin Acetaminophen/ Hydrocodone Bitart 1 tab Q4HP PRN PO 03/15/25 23:15 Ondansetron HCl 4 mg Q4HP PRN IV 03/15/25 23:15 Docusate Sodium 100 mg BIDPRN PRN PO 03/15/25 23:15 Pantoprazole Sodium 40 mg DAILY IV 03/16/25 10:00 03/18/25 09:29 40 MG Lactated Ringer's 1,000 ml @ 50 mls/hr Q20H IV 03/16/25 03:30 03/16/25 04:19 50 MLS/HR Apixaban 2.5 mg BID PO 03/16/25 10:00 03/18/25 09:28 2.5 MG Atorvastatin Calcium 40 mg HS PO 03/16/25 22:00 03/17/25 21:51 40 MG Finasteride 5 mg DAILY PO 03/16/25 10:00 03/18/25 09:28 5 MG Levothyroxine Sodium 100 mcg QAM PO 03/16/25 07:00 03/18/25 06:15 100 MCG Multivitamins 1 tab DAILY PO 03/16/25 10:00 03/18/25 09:29 1 TAB Cholecalciferol 1,000 unit DAILY PO 03/16/25 10:00 03/18/25 09:28 1,000 UNIT Patient Own Medication 2 tab DAILY PO 03/16/25 10:00 UNV Lisinopril 40 mg DAILY PO 03/16/25 10:00 03/18/25 09:28 40 MG Hydrochlorothiazide 25 mg DAILY PO 03/16/25 10:00 03/18/25 09:29 25 MG Examination General Appearance: Not in acute distress HEENT: Pale Conjuntivae (L), Pale Conjuntivae (R), Pharynx Normal, TMs Normal Neck: Full Range of Motion, Non-Tender, Normal, Normal Inspection Respiratory: Chest Non-Tender, Decreased Breath Sounds, Lungs Clear, No Accessory Muscle Use, Respiratory Distress Cardiovascular: No Edema, No JVD, No Murmur, No Gallop, Normal Peripheral Pulses, Regular Rate/Rhythm Gastrointestinal: No Organomegaly, Non Tender, No Pulsatile Mass, Normal Bowel Sounds, Soft Extremities: No calf tenderness, Normal capillary refill, Non-tender, No pedal edema, Other (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 Resulted Problem List/Assessment/Plan Problem List/Assessment/Plan Assessment and plan # Presyncope probably due to pacemaker malfunction # Acute on chronic systolic heart failure , EF 45-50% -coronary angiogram done on 12/07/2024-angioplasty, thrombectomy and stent placed in LAD. - CXR- no acute cardiopulmonary disease, cardiac device present -EKG shows ventricular paced rhythm, QTC 525, HR 70. Does not sense atrium, av dissociation ( Beck Operator - Vaioni [phone].) - continue Eliquis - Ruled out orthostatic vitals - cardiac duplex :No hemodynamically significant stenosis by velocity criteria. Mild atherosclerotic plaque. - Venous duplex bilateral lower ext: Patient's of deep vein thromboses . - BNP 97.27 - Hydrochlorothiazide 25 mg p.o. daily - Lisinopril 40 mg p.o. daily - Cardiology recommended labs to rule out infection, PPI Carafate, and rule out SSS -Cardilogy will review atrial lead tomorrow AM. # Low-back pain No focal neurological weakness. Patient had history of fall. Lab shows leukocytosis CT myelogram done report pending leukocytosis trending down 12.8 to 10.7 #Hyponatremia serum sodium level 135 # Ruled out PE - CT angio showed No large central pulmonary embolism. The study is severely degraded by motion artifact. Diffuse thickening of the entire length of the esophagus. Correlate clinically for esophagitis and possible gastroesophageal reflux. # Hypoxic respiratory failure: Was on 2 L oxygen via NC now on room air. # SIRS , not sepsis Leukocytosis-, lactic acidosis- resolved. Leukocytosis-resolved # Lactic acidosis Lactic acid 3.9> 2.8> 1.7 Adequate hydration as tolerated # Diabetes mellitus with hyperglycemia HbA1c 7.3 Home medication Lantus, stool and Trulicity Insulin sliding scale #Gout: Continue home meds-epididymal 300 mg #Hyperlipidemia: Continue atorvastatin # Hypothyroidism: Continue levothyroxine # Vitamin-D deficiency: Continue vitamin-D supplementation # Benign prostatic hyperplasia : finasteride 5 mg p.o. qd # Hemoconcentration possibly dehydration # Hyperbilirubinemia -total bilirubin 1.2, AST ALT in normal range # #COREY due to vasomotor nephropathy creatinine 1.59 and repeat creatinine 1.20>1.17>1.18 -Renal diet -Avod nephrotoxic drugs due to vasomotor PPI prophylaxis: pantoprazole DVT prophylaxis: Eliquis Fall precaution Goals of care addressed with the patient for more than 22 minutes: Full code status . Case discuss with Dr. Leal Plan discussed with: Patient, Other (Nurse, spouse) My Orders My Orders Orders - DAYO MARTIN Procedure Category Date Status Time Ct Guidance For CT 03/18/25 Taken Needle Placeme 13:27 Ls Spine Wo Contrast CT 03/18/25 Taken 13:27 Date of Service: Mar 18, 2025 Billing Provider: VAL LEAL MD Common Visit Codes: [id number] INP/OBS CARE(HIGH) DAYO MARTIN Mar 18, 2025 16:34 SCOT PERERA Mar 20, 2025 01:46 VAL LEAL MD Mar 20, 2025 22:38
[2025-03-18 22:14] LABS: COVID19 ANTIGEN SOFIA FIA NEGATIVE (NEGATIVE)
[2025-03-19] VITALS (8 sets, daily range): BP systolic 118–142; BP diastolic 69–84; PULSE 49–86; RESP 16–18; TEMP 97.7–98.2; O2SAT 94–99
[2025-03-19 06:47] LABS: Hematocrit 49.4 % (41.0-53.0); Hemoglobin 17.5 g/dL (13.5-17.5); Mean Corpuscular Hemoglobin 33.0 pg (28.0-32.0); Mean Corpuscular Volume 92.9 fL (80.0-100.0); Nucleated Red Blood Cells % 0.1 %
[2025-03-19 06:51] LABS: Chloride 100 mmol/L (98-107)
[2025-03-19 06:52] LABS: Anion Gap 9 (5-15); Calcium 8.9 mg/dL (8.7-10.4); Carbon Dioxide 26 mmol/L (20-31)
[2025-03-19 06:57] LABS: BUN/Creatinine Ratio 13.6 (10.0-20.0); Blood Urea Nitrogen 14 mg/dL (9-23); Potassium 3.4 mmol/L (3.5-5.1); Sodium 135 mmol/L (136-145)
[2025-03-19 06:58] LABS: Glucose 150 mg/dL (74-106)
--- NOTE | 2025-03-19 08:50 | DVH ---
CT LS SPINE WO CONTRAST INDICATION: LUMBAR MYELOGRAM EXAM DATE: 03/18/2025 01:47 PM COMPARISON: None RADIATION DOSE: CTDIvol: 24.7 mGy, DLP: 3277.22 mGy*cm PROCEDURE: After obtaining written informed consent, the patient was placed prone on the intervention al table. The patient's identity and the procedure were confirmed by the timeout process. Under CT, a near midline approach to the L3-4 interlaminar space was selected and the overlying skin anesthetized with several mL of 1% lidocaine. A 22G spinal needle was advanced under CT into the thec al sac with return of clear CSF. 8 mL Visi 300 was injected without compleication. The needle was rem montserrat and a bandage placed. The patient tolerated the procedure well without immediate complication. Utilizing the CT scanner, contiguous axial scans were obtained through the lumbar spine. Coronal and sagittal reformatted images were then generated. All CT scans at this medical facility are performed using dose modulation techniques as appropriate t o a performed exam including the following: Automated exposure control was utilized; adjustment of th e MA and/or KV according to patient size; and use of iterative reconstruction technique. FINDINGS: There are 5 lumbar segments. Mild anterolisthesis of L4-5. The lumbar vertebral body height s and alignment are maintained. The intervertebral disc spaces are narrow and degenerative. The corti isidra margins are intact. The paraspinal soft tissues are normal. Intrathecal contrast material is seen opacifying the thecal sac well distributed. On axial images: At L1-2, the posterior disc osteophyte complex, thecal sac, neural foramina, and facet joints are deg enerative. At L2-3, the posterior disc osteophyte complex, thecal sac, severe bilateral neural foramina narrowin g, and facet joints are degenerative. At L3-4, the posterior disc osteophyte complex, thecal sac, mild bilateral neural foramina narrowing, and facet joints are degenerative. At L4-5, the posterior disc osteophyte complex, thecal sac measures 4 mm, severe bilateral neural for jose narrowing, and facet joints are degenerative. Prominent posterior epidural thickness with a foc i of gas visualized is nonspecific and present prior to the myelogram contributes to spinal canal tabatha rowing. At L5-S1, the posterior disc osteophyte complex, thecal sac, severe bilateral neural foramina narrowi ng, and facet joints are degenerative. IMPRESSION: Severe spinal canal narrowing at L4-5 measures 4 mm in AP dimension with prominent posterior epidural thickness with a foci of gas visualized is nonspecific and could be inflammation and present prior t o the myelogram contributes to spinal canal narrowing. Severe bilateral neural foramina narrowing.
[2025-03-19] MEDS: POTASSIUM CHL 20MEQ/100ML 100 ML IV ONE (08:57)
[2025-03-19] MEDS: VANCOMYCIN HCL 1000 MG VL ONE (10:18)
[2025-03-19] MEDS: MIDAZOLAM HCL 2MG/2ML 2ml VIAL (1mg/ml) ONE (10:18)
[2025-03-19] MEDS: LIDOCAINE 2%HCL (LOCAL ANESTH.) INJ 20ML MDV ONE ×2 (10:19→11:32)
[2025-03-19] MEDS: ceFAZolin 1GM/50ML 50 ML IV ONE (10:19)
[2025-03-19] MEDS: fentaNYL CITRATE 100 MCG/2 ML VL ONE (10:22)
[2025-03-19] MEDS: LIDOCAINE W/ EPINEPHRINE 2% INJ 20ML VIAL ONE (12:25)
--- NOTE | 2025-03-19 12:30 | DVHPN2 ---
Progress Note - Dictate Date Seen: Mar 19, 2025 Medical Necessity Reason Pt with a Central, PICC or Fol: No Subjective PT WITH NEAR SYNCOPE HX OF AFIB CAD S/P PTCA STENT The patient is a 74 years old with a history of sick sinus syndrome, status post permanent pacemaker implantation, history of chronic AFib, now just V-paced. Ejection fraction has come down to like 45-50%. Because of the change in EF, it is felt that the patient should undergo coronary angiography. Furthermore, he is having symptoms of chest pain as well. The patient is now to undergo left heart catheterization. Further recommendations after the angiogram. PERTINENT MEDICAL HISTORY: Significant for hypertension, hyperlipidemia, atrial fibrillation, hypercoagulable state, history of congestive heart failure and heart failure with reduced ejection fraction. Secondary to V pacing, I believe. However, coronary artery disease cannot be excluded at this time because of rapid change in EF. REVIEW OF SYSTEMS: He denies any fever, chills, melena, hematochezia, hematemesis, or hemoptysis. No hematuria. He denies any history of CVA. No history of melena. No history of irritable bowel syndrome. No rheumatologic disorder such as lupus or rheumatoid arthritis. No history of inflammatory bowel disease. vital signs Vital Sign Date Time Temp Pulse Resp B/P (MAP) Pulse Ox O2 Delivery O2 Flow Rate FiO2 03/19/25 08:36 98.2 54 16 142/82 (102) 94 98.2 03/19/25 08:19 Room Air* 0 21 Total Intake and Output 03/18/25 03/18/25 03/19/25 15:00 23:00 07:00 Intake Total 1500 ml 650 ml Balance 1500 ml 650 ml medications Current Medications Medications Dose Ordered Sig/Macario Route Start Time Stop Time Status Last Admin Dose Admin Acetaminophen/ Hydrocodone Bitart 1 tab Q4HP PRN PO 03/15/25 23:15 Ondansetron HCl 4 mg Q4HP PRN IV 03/15/25 23:15 Docusate Sodium 100 mg BIDPRN PRN PO 03/15/25 23:15 Pantoprazole Sodium 40 mg DAILY IV 03/16/25 10:00 03/18/25 09:29 40 MG Lactated Ringer's 1,000 ml @ 50 mls/hr Q20H IV 03/16/25 03:30 03/16/25 04:19 50 MLS/HR Atorvastatin Calcium 40 mg HS PO 03/16/25 22:00 03/18/25 21:16 40 MG Finasteride 5 mg DAILY PO 03/16/25 10:00 03/18/25 09:28 5 MG Levothyroxine Sodium 100 mcg QAM PO 03/16/25 07:00 03/19/25 06:02 100 MCG Multivitamins 1 tab DAILY PO 03/16/25 10:00 03/18/25 09:29 1 TAB Cholecalciferol 1,000 unit DAILY PO 03/16/25 10:00 03/18/25 09:28 1,000 UNIT Patient Own Medication 2 tab DAILY PO 03/16/25 10:00 UNV Lisinopril 40 mg DAILY PO 03/16/25 10:00 03/18/25 09:28 40 MG Hydrochlorothiazide 25 mg DAILY PO 03/16/25 10:00 03/18/25 09:29 25 MG Enoxaparin Sodium 90 mg Q12HR SC 03/19/25 22:00 objective PHYSICAL EXAMINATION: VITAL SIGNS: Blood pressure is 132/80, pulse 60 and regular. O2 saturation is 94% on room air. HEENT: Pupils are reactive. Sclerae are anicteric. Funduscopic exam shows no AV nicking. No exudates. No papilledema. Extraocular muscles are intact. Tympanic membranes are negative. Oral mucosa moist. Posterior pharynx without any exudate. NECK: Carotid pulses are 2+ and symmetrical. No JVD appreciated. No cervical adenopathy. No supraclavicular adenopathy. PULMONARY: Clear to auscultation. Tympanic to percussion. CARDIOVASCULAR: Regular rate without S3, without S4. PMI is not displaced. ABDOMEN: Obese, unable to appreciate organomegaly. SKIN: Unremarkable. EXTREMITIES: 2+ pulses bilaterally. laboratory and microbiology Laboratory Tests 03/19/25 05:22 Test 03/19/25 05:22 Range/Units Serum Glucose 150 H 74-106 mg/dL Problem List NEAR SYNCOPE LEUKOCYTOSIS SECONDARY POLYCYTHEMIA ORG HD DIASTOLIC DYSFUNCTION CAD S/P PTCA STENT 12/07 AFIB HYPERCOAGULOPATHY HTN ESOPHAGITIS Assessment/Plan LAB R/O INFECTION R/O SSS PROTON INHIBITOR CARAFATE ATRIAL LEAD FAILURE NEED ATRIAL LEAD IN AM S/P DUAL PPI CHANGE WITH NEW ATRIAL LEAD MAY DC HOME HOME ELIQUIS X 5 DAYS Plan discussed with: Patient STEVE PEARL MD Mar 19, 2025 12:30
--- NOTE | 2025-03-19 13:07 | DVHOP ---
DATE OF SURGERY: 03/19/2025 PROCEDURES TO BE PERFORMED: * Explantation dual-chamber permanent pacemaker. * Implantation new atrial lead. * Capping of an old atrial lead. * Conscious sedation was given. DESCRIPTION OF PROCEDURE: The patient was prepped and draped under sterile conditions. Xylocaine 1% was used to anesthetize the left subclavicular region. Venography was performed and after venogram, using a Cook needle left subclavian vein was cannulated and guidewire was appropriately positioned. Using a 10 blade, linear incision was made using blunt dissection and electrocautery, pocket was then dissected out. Old generator was exposed. The generator was then explanted. The new generator was then implanted into the right ventricular lead. The right atrial lead was then capped. Then, a 7-Croatian peel-away sheath was inserted into the left subclavian. A new right atrial lead was then appropriately positioned. Threshold parameters obtained. Lead was secured to the chest wall using 0 Ethibond. Then the atrial lead was implanted, was plugged into this pacemaker. Pocket was irrigated using vancomycin and saline solution. Pocket was closed using 3-0 Monoderm subcutaneous sutures followed by 3-0 Monoderm subcuticular sutures. There were no complications. The patient tolerated the procedure well. RESULTS: The patient had explantation of Biotronik dual-chamber permanent pacemaker Edora 8 DR-T, serial number [id number], implanted on 10/15/2018 at [place]. The guidance lead was then capped which was a guidance FINELINE II 4269, serial number [id number]. The new atrial lead implanted is Solia S 45, model number 090968, serial number [id number]. The ventricular lead is a guidance FINELINE 4035, serial number [id number], implanted on 05/21/2004. The new generator was Amvia Edge DR-T, model number 922661, serial number [id number]. Threshold parameters: P-wave amplitude of 4.9 volts, threshold of 0.8 volts at 0.4 milliseconds pulse duration, pacing impedance of 624 ohms. R-wave amplitude of 6.7 millivolts, threshold of 0.4 volts at 0.4 milliseconds pulse duration, pacing impedance of 635 ohms. CONCLUSION: The patient had successful explantation of dual-chamber permanent pacemaker, implantation of new atrial lead and new dual-chamber permanent pacemaker. This is not an MRI-compatible system since the patient has an atrial lead that has been capped and furthermore, the patient's ventricular lead is non-MRI compatible system. Tae Gomez MD SA/ANNIKA/HÉCTOR TID: [id number] RECEIPT: [id number]
[2025-03-19] MEDS: HYDROcodone-ACET 5/325MG TAB PO ONE (13:56)
--- NOTE | 2025-03-19 14:33 | DVH ---
INDICATION: S/P PACEMAKER GENERATOR PLACEMENT TECHNIQUE: Frontal view of the chest. COMPARISON: XY CHEST PORTABLE on DOS: 03/15/25, XY CHEST TWO VIEWS ROUTINE on DOS: 12/02/24, CT CHEST W ITH CONTRAST on DOS: 12/06/23, XY CHEST TWO VIEWS ROUTINE on DOS: 12/28/22, CHEST TWO VIEWS ROUTINE on DOS: 04/09/20 FINDINGS: Dual lead left-sided pacemaker.. The heart and mediastinal contours are grossly unremarkable. There is no evidence of pleural disease. The lungs are clear. The bony structures of the chest are intac t without fracture. IMPRESSION: 1. No evidence of acute disease.
[2025-03-19] MEDS: ceFAZolin 1GM/50ML 50 ML IV SCH (16:31)
[2025-03-19] MEDS ORDERED: DAPA1TAB4 PO (16:52)
[2025-03-19] MEDS ORDERED: TRAM-626 PO (16:52)
--- NOTE | 2025-03-19 18:47 | DVHPNRES ---
Progress Note Date Seen: Mar 19, 2025 Resident Creating Document: DAYO MARTIN RESIDENT Medical Necessity Reason Pt with a Central, PICC or Fol: No Subjective Review of Systems Patient is a 74-year-old male with past medical history of hypertension, diabetes mellitus, hyperlipidemia, hypothyroidism who came to the ED with chief complaints of presyncope, he states he was getting up to go to the bathroom were taking his 1st steps he felt he was going to fall and called his who helped him lay on the ground. Patient feeling experienced of nausea and sweating but no chest pain, blurry vision or hitting his head. Patient states that he did not feel dizzy and did not lose consciousness but felt weak last 4 days. Patient denies any fever chills, nausea, vomiting, diarrhea, shortness for breath or chest pain. On arrival patient was on 2 L of oxygen but today morning he was tolerating room air. Patient denies any sick contacts, recent travel, or injuries. Angiogram on 12/04/2024 shows stent LAD by Dr. Strong, Past medical history: As above Surgical history: Multiple pacemakers 1997, left hip replacement, bilateral knee replacement, surgery to his left fingers Family history: CAD-parents Personal history: Denies smoking, drinking, drug use Lives with: Family PCP: Dr. Strong Patient evaluated and seen on bedside. No acute events overnight. Patient underwent dual permanent pacemaker implantation today. Cardiology recommended Eliquis 5 days during discharge home. Spouse on bedside and discussed about management plan. Objective vital signs Vital Sign Date Time Temp Pulse Resp B/P (MAP) Pulse Ox O2 Delivery O2 Flow Rate FiO2 03/19/25 16:44 98.0 75 17 129/80 (96) 97 98.0 03/19/25 08:19 Room Air* 0 21 Total Intake and Output 03/18/25 03/18/25 03/19/25 15:00 23:00 07:00 Intake Total 1500 ml 650 ml Balance 1500 ml 650 ml medications Current Medications Medications Dose Ordered Sig/Macario Route Start Time Stop Time Status Last Admin Dose Admin Acetaminophen/ Hydrocodone Bitart 1 tab Q4HP PRN PO 03/15/25 23:15 Ondansetron HCl 4 mg Q4HP PRN IV 03/15/25 23:15 Docusate Sodium 100 mg BIDPRN PRN PO 03/15/25 23:15 Pantoprazole Sodium 40 mg DAILY IV 03/16/25 10:00 03/19/25 16:41 40 MG Lactated Ringer's 1,000 ml @ 50 mls/hr Q20H IV 03/16/25 03:30 03/16/25 04:19 50 MLS/HR Atorvastatin Calcium 40 mg HS PO 03/16/25 22:00 03/18/25 21:16 40 MG Finasteride 5 mg DAILY PO 03/16/25 10:00 03/19/25 16:42 5 MG Levothyroxine Sodium 100 mcg QAM PO 03/16/25 07:00 03/19/25 06:02 100 MCG Multivitamins 1 tab DAILY PO 03/16/25 10:00 03/19/25 16:41 1 TAB Cholecalciferol 1,000 unit DAILY PO 03/16/25 10:00 03/19/25 16:41 1,000 UNIT Patient Own Medication 2 tab DAILY PO 03/16/25 10:00 UNV Lisinopril 40 mg DAILY PO 03/16/25 10:00 03/19/25 16:42 40 MG Hydrochlorothiazide 25 mg DAILY PO 03/16/25 10:00 03/19/25 16:42 25 MG Enoxaparin Sodium 90 mg Q12HR SC 03/19/25 22:00 Cefazolin Sodium 50 ml @ 100 mls/hr Q8HR IV 03/19/25 16:31 Examination General Appearance: Not in acute distress HEENT: Pale Conjuntivae (L), Pale Conjuntivae (R), Pharynx Normal, TMs Normal Neck: Full Range of Motion, Non-Tender, Normal, Normal Inspection Respiratory: Chest Non-Tender, Decreased Breath Sounds, Lungs Clear, No Accessory Muscle Use, Respiratory Distress Cardiovascular: No Edema, No JVD, No Murmur, No Gallop, Normal Peripheral Pulses, Regular Rate/Rhythm Gastrointestinal: No Organomegaly, Non Tender, No Pulsatile Mass, Normal Bowel Sounds, Soft Extremities: No calf tenderness, Normal capillary refill, Non-tender, No pedal edema, Other (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 Resulted Problem List/Assessment/Plan Problem List/Assessment/Plan # Presyncope due to pacemaker malfunction # Acute on chronic systolic heart failure , EF 45-50% - patient underwent dual permanent pacemaker implantation(PPI) today. - cardiology recommended Eliquis 5 days during discharge home. - coronary angiogram done on 12/07/2024-angioplasty, thrombectomy and stent placed in LAD. - CXR- no acute cardiopulmonary disease, cardiac device present -EKG shows ventricular paced rhythm, QTC 525, HR 70. Does not sense atrium, AV dissociation - Positive orthostatic hypotension - cardiac duplex :No hemodynamically significant stenosis by velocity criteria. Mild atherosclerotic plaque. - Venous duplex bilateral lower ext: Patient's of deep vein thromboses . - BNP 97.27 - Hydrochlorothiazide 25 mg p.o. daily - Lisinopril 40 mg p.o. daily -Lovenox - Cardiology recommended labs to rule out infection, PPI Carafate # Low-back pain No focal neurological weakness. Patient had history of fall. Lab shows leukocytosis-resolved CT myelogram on 03/18/2025: severe spinal stenosis at lumbar 4-5 narrowing, Severe bilateral neural foramina narrowing. Neurosurgery follow-up outpatient #Hyponatremia serum sodium level 135 # Hypokalemia Serum potassium level 3.4, supplemented # Ruled out PE - CT angio showed No large central pulmonary embolism. The study is severely degraded by motion artifact. Diffuse thickening of the entire length of the esophagus. Correlate clinically for esophagitis and possible gastroesophageal reflux. # Hypoxic respiratory failure: Was on 2 L oxygen via NC now on room air. # SIRS , not sepsis Leukocytosis-, lactic acidosis- resolved. Leukocytosis-resolved # Lactic acidosis Lactic acid 3.9> 2.8> 1.7 Adequate hydration as tolerated # Diabetes mellitus with hyperglycemia HbA1c 7.3 Home medication Lantus, stool and Trulicity Insulin sliding scale #Gout: Allopurinol 300 mg 3 #Hyperlipidemia: Continue atorvastatin # Hypothyroidism: Continue levothyroxine # Vitamin-D deficiency: Continue vitamin-D supplementation # Benign prostatic hyperplasia : finasteride 5 mg p.o. qd # Hemoconcentration possibly dehydration # Hyperbilirubinemia -total bilirubin 1.2, AST ALT in normal range # #COREY due to vasomotor nephropathy creatinine 1.59 and repeat creatinine 1.20>1.17>1.18>1.03 -Renal diet -Avod nephrotoxic drugs due to vasomotor # Over weight, BMI 29.4 Lifestyle modification PPI prophylaxis: pantoprazole DVT prophylaxis: Lovenox Fall precaution Goals of care addressed with the patient for more than 24 minutes: Full code status . Case discuss with Dr. Leal Plan discussed with: Patient, Other (NURSE, SPOUSE) Date of Service: Mar 19, 2025 Billing Provider: VAL LEAL MD Common Visit Codes: [id number] INP/OBS CARE(HIGH) DAYO MARTIN RESIDENT Mar 19, 2025 18:47 SCOT PERERA RESIDENT Mar 20, 2025 01:48 VAL LEAL MD Mar 27, 2025 21:39
[2025-03-19] MEDS: ENOXAPARIN SOD 100 MG/1 ML SYRINGE SC SCH (21:27)
[2025-03-20 05:00] VITALS: BP_SYST 0; BP_SYST 112; BP_DIAS 71; PULSE 75; RESP 18; TEMP 97.7; O2SAT 95
[2025-03-20 05:56] LABS: Hematocrit 48.1 % (41.0-53.0); Hemoglobin 17.4 g/dL (13.5-17.5); Mean Corpuscular Hemoglobin 33.7 pg (28.0-32.0); Mean Corpuscular Volume 93.3 fL (80.0-100.0); Nucleated Red Blood Cells % 0.2 %
[2025-03-20 06:07] LABS: Anion Gap 8 (5-15); Carbon Dioxide 29 mmol/L (20-31); Chloride 98 mmol/L (98-107)
[2025-03-20 06:08] LABS: Calcium 9.0 mg/dL (8.7-10.4)
[2025-03-20 06:13] LABS: BUN/Creatinine Ratio 13.4 (10.0-20.0); Blood Urea Nitrogen 15 mg/dL (9-23)
[2025-03-20 06:24] LABS: Glucose 134 mg/dL (74-106); Potassium 3.5 mmol/L (3.5-5.1); Sodium 135 mmol/L (136-145)
[2025-03-20 08:00] VITALS: PULSE 75
[2025-03-20 08:30] VITALS: BP 116/78; PULSE 75; RESP 20; TEMP 98.1; O2SAT 92
--- NOTE | 2025-03-20 09:03 | DVHPN2 ---
Progress Note - Dictate Date Seen: Mar 20, 2025 Medical Necessity Reason Pt with a Central, PICC or Fol: No Subjective PT WITH NEAR SYNCOPE HX OF AFIB CAD S/P PTCA STENT The patient is a 74 years old with a history of sick sinus syndrome, status post permanent pacemaker implantation, history of chronic AFib, now just V-paced. Ejection fraction has come down to like 45-50%. Because of the change in EF, it is felt that the patient should undergo coronary angiography. Furthermore, he is having symptoms of chest pain as well. The patient is now to undergo left heart catheterization. Further recommendations after the angiogram. PERTINENT MEDICAL HISTORY: Significant for hypertension, hyperlipidemia, atrial fibrillation, hypercoagulable state, history of congestive heart failure and heart failure with reduced ejection fraction. Secondary to V pacing, I believe. However, coronary artery disease cannot be excluded at this time because of rapid change in EF. REVIEW OF SYSTEMS: He denies any fever, chills, melena, hematochezia, hematemesis, or hemoptysis. No hematuria. He denies any history of CVA. No history of melena. No history of irritable bowel syndrome. No rheumatologic disorder such as lupus or rheumatoid arthritis. No history of inflammatory bowel disease. vital signs Vital Sign Date Time Temp Pulse Resp B/P (MAP) Pulse Ox O2 Delivery O2 Flow Rate FiO2 03/20/25 05:00 97.7 75 18 112/71 (85) 95 97.7 0/ 03/19/25 20:00 Room Air* 0 21 Total Intake and Output 03/19/25 03/19/25 03/20/25 15:00 23:00 07:00 Intake Total 250 ml 575 ml Balance 250 ml 575 ml medications Current Medications Medications Dose Ordered Sig/Macario Route Start Time Stop Time Status Last Admin Dose Admin Acetaminophen/ Hydrocodone Bitart 1 tab Q4HP PRN PO 03/15/25 23:15 Ondansetron HCl 4 mg Q4HP PRN IV 03/15/25 23:15 Docusate Sodium 100 mg BIDPRN PRN PO 03/15/25 23:15 Pantoprazole Sodium 40 mg DAILY IV 03/16/25 10:00 03/19/25 16:41 40 MG Lactated Ringer's 1,000 ml @ 50 mls/hr Q20H IV 03/16/25 03:30 03/16/25 04:19 50 MLS/HR Atorvastatin Calcium 40 mg HS PO 03/16/25 22:00 03/19/25 21:25 40 MG Finasteride 5 mg DAILY PO 03/16/25 10:00 03/19/25 16:42 5 MG Levothyroxine Sodium 100 mcg QAM PO 03/16/25 07:00 03/20/25 06:28 100 MCG Multivitamins 1 tab DAILY PO 03/16/25 10:00 03/19/25 16:41 1 TAB Cholecalciferol 1,000 unit DAILY PO 03/16/25 10:00 03/19/25 16:41 1,000 UNIT Patient Own Medication 2 tab DAILY PO 03/16/25 10:00 UNV Lisinopril 40 mg DAILY PO 03/16/25 10:00 03/19/25 16:42 40 MG Hydrochlorothiazide 25 mg DAILY PO 03/16/25 10:00 03/19/25 16:42 25 MG Enoxaparin Sodium 90 mg Q12HR SC 03/19/25 22:00 03/19/25 21:27 90 MG Cefazolin Sodium 50 ml @ 100 mls/hr Q8HR IV 03/19/25 16:31 03/20/25 06:28 100 MLS/HR objective PHYSICAL EXAMINATION: VITAL SIGNS: Blood pressure is 132/80, pulse 60 and regular. O2 saturation is 94% on room air. HEENT: Pupils are reactive. Sclerae are anicteric. Funduscopic exam shows no AV nicking. No exudates. No papilledema. Extraocular muscles are intact. Tympanic membranes are negative. Oral mucosa moist. Posterior pharynx without any exudate. NECK: Carotid pulses are 2+ and symmetrical. No JVD appreciated. No cervical adenopathy. No supraclavicular adenopathy. PULMONARY: Clear to auscultation. Tympanic to percussion. CARDIOVASCULAR: Regular rate without S3, without S4. PMI is not displaced. ABDOMEN: Obese, unable to appreciate organomegaly. SKIN: Unremarkable. EXTREMITIES: 2+ pulses bilaterally. laboratory and microbiology Laboratory Tests 03/20/25 04:26 Test 03/20/25 04:26 Range/Units Serum Glucose 134 H 74-106 mg/dL Problem List NEAR SYNCOPE LEUKOCYTOSIS SECONDARY POLYCYTHEMIA ORG HD DIASTOLIC DYSFUNCTION CAD S/P PTCA STENT 12/07 AFIB HYPERCOAGULOPATHY HTN ESOPHAGITIS Assessment/Plan LAB R/O INFECTION R/O SSS PROTON INHIBITOR CARAFATE ATRIAL LEAD FAILURE NEED ATRIAL LEAD IN AM S/P DUAL PPI CHANGE WITH NEW ATRIAL LEAD MAY DC HOME HOME ELIQUIS X 5 DAYS DC HOME ON KEFLEX/ OR LEVAQUIN X 5 DAYS OFF ELIQUIS X 5 DAYS FOLLOWUP ON SUNDAY Plan discussed with: Patient, Spouse STEVE PEARL MD Mar 20, 2025 09:03
--- NOTE | 2025-03-20 14:31 | DVHDSRES ---
Discharge Summary Date of Admission Resident Creating Document: DAYO MARTIN RESIDENT Mar 15, 2025 at 23:10 Date of Discharge: Mar 20, 2025 Labs/Diagnostic Data: Laboratory Results Test 03/20/25 04:26 03/18/25 21:00 03/16/25 14:30 03/16/25 05:15 White Blood Count 11.9 10^3/uL (4.4-10.8) Red Blood Count 5.16 10^6/uL (4.5-5.90) Hemoglobin 17.4 g/dL (13.5-17.5) Hematocrit 48.1 % (41.0-53.0) Mean Corpuscular Volume 93.3 fL (80.0-100.0) Mean Corpuscular Hemoglobin 33.7 pg (28.0-32.0) Mean Corpuscular Hemoglobin Concent 36.2 g/dL (32.0-36.0) Red Cell Distribution Width 13.8 % (11.8-14.3) Platelet Count 189 10^3/uL (140-450) Mean Platelet Volume 7.9 fL (6.9-10.8) Neutrophils (%) (Auto) 73.7 % (37.0-80.0) Lymphocytes (%) (Auto) 15.5 % (10.0-50.0) Monocytes (%) (Auto) 9.0 % (0.0-12.0) Eosinophils (%) (Auto) 1.5 % (0.0-7.0) Basophils (%) (Auto) 0.3 % (0.0-2.0) Neutrophils # (Auto) 8.7 10 ^3/uL (1.6-8.6) Lymphocytes # (Auto) 1.8 10 ^3/uL (0.4-5.4) Monocytes # (Auto) 1.1 10 ^3/uL (0-1.3) Eosinophils # (Auto) 0.2 10 ^3/uL (0-0.8) Basophils # (Auto) 0 10 ^3/uL (0-0.2) Nucleated Red Blood Cells 0.2 % Sodium Level 135 mmol/L (136-145) Potassium Level 3.5 mmol/L (3.5-5.1) Chloride Level 98 mmol/L (98-107) Carbon Dioxide Level 29 mmol/L (20-31) Anion Gap 8 (5-15) Blood Urea Nitrogen 15 mg/dL (9-23) Creatinine 1.12 mg/dL (0.700-1.30) Glomerular Filtration Rate Calc 69 mL/min (>90) BUN/Creatinine Ratio 13.4 (10.0-20.0) Serum Glucose 134 mg/dL (74-106) Calcium Level 9.0 mg/dL (8.7-10.4) SARS-CoV-2 Antigen (Rapid) Negative (NEGATIVE) Urine Color Light-yellow (Yellow) Urine Clarity Clear (Clear) Urine pH 6.0 (5.0-9.0) Urine Specific [place] 1.023 (1.001-1.035) Urine Protein Trace (Negative) Urine Ketones 1+ (Negative) Urine Blood Negative /uL (Negative) Urine Nitrite Negative (Negative) Urine Bilirubin Negative (Negative) Urine Urobilinogen Normal mg/dL (Negative) Urine Leukocyte Esterase Negative /uL (Negative) Urine RBC 2 /hpf (0 - 3) Urine Microscopic WBC 2 /HPF (0-3) Urine Squamous Epithelial Cells None seen /hpf (<5) Urine Bacteria None seen /hpf (None Seen) Urine Glucose 4+ mg/dL (Normal) Hemoglobin A1c 7.3 % A1C (<5.7) Lactic Acid Level 1.7 mmol/L (0.4-2.0) Total Bilirubin 1.2 mg/dL (0.2-1.0) Aspartate Amino Transferase (AST) 20 U/L (13-40) Alanine Aminotransferase (ALT) 15 U/L (7-40) Alkaline Phosphatase 105 U/L (46-116) B-Type Natriuretic Peptide 97.27 pg/mL (0-100) Total Protein 7.0 g/dL (5.7-8.2) Albumin 4.2 g/dL (3.2-4.8) Triglycerides Level 152 mg/dL (< 150) Cholesterol Level 159 mg/dL (< 200) LDL Cholesterol 117 mg/dL (< 100) HDL Cholesterol 28 mg/dL (40-59) Vitamin B12 Level 980 pg/mL (211-911) Thyroid Stimulating Hormone (TSH) 3.00 uIU/mL (0.55-4.78) Test 03/15/25 23:50 03/15/25 23:24 03/15/25 18:53 03/15/25 17:56 Prothrombin Time 10.9 sec (9.3-11.8) Prothrombin Time INR 1.03 (0.9-1.15) POC Glucose 169 mg/dl (70-106) Troponin I High Sensitivity 12 ng/L (</=54) D-Dimer, Quantitative 1.05 mg/L FEU (0.0-0.49) Other Laboratory Tests 03/20/25 04:26 Brief Hx & Hospital Course: Patient is a 74-year-old male with past medical history of hypertension, diabetes mellitus, hyperlipidemia, hypothyroidism who came to the ED with chief complaints of presyncope, he states he was getting up to go to the bathroom were taking his 1st steps he felt he was going to fall and called his who helped him lay on the ground. Patient feeling experienced of nausea and sweating but no chest pain, blurry vision or hitting his head. Patient states that he did not feel dizzy and did not lose consciousness but felt weak last 4 days. Patient denies any fever chills, nausea, vomiting, diarrhea, shortness for breath or chest pain. On arrival patient was on 2 L of oxygen but today morning he was tolerating room air. Patient denies any sick contacts, recent travel, or injuries. Angiogram on 12/04/2024 shows stent LAD by Dr. Strong, Past medical history: As above Surgical history: Multiple pacemakers 1997, left hip replacement, bilateral knee replacement, surgery to his left fingers Family history: CAD-parents Personal history: Denies smoking, drinking, drug use Lives with: Family PCP: Dr. 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 Dual permanent pacemaker implantation replaced on 03/19/2025. On admission, patient pacemaker interrogated and found ventricular paced rhythm and atrial lead is nonfunctioning evaluated by roof technician ([phone]). Patient had recent history of fall and lab shows leukocytosis. Cardiology recommended MRI which is not comfortable with pacemaker lead. CT myelogram on 03/19/2025 shows severe spinal canal narrowing at level of L4-5 measures 4 mm in anterior-posterior dimensions with prominent posterior epidural thickness contributory spinal canal narrowing and severe bilateral neural foraminal narrowing. X-ray chest shows no acute cardiopulmonary disease, CT angiogram negative for pulmonary embolism. Carotid Doppler- no hemodynamically significant stenosis, mild atherosclerotic plaque. Patient leukocytosis resolved and underwent dual permanent pacemaker implant change with new atrial lead. patient currently denies any SOB, chest pain, cough, headache, palpitation, abdominal pain or any other acute distress. Continue Keflex and Eliquis for 5 days follow-up Sunday(03/23/2025) with Dr. Strong. Patient is hemodynamically stable for discharge. The patient has received maximum benefits from inpatient treatment. Time was given to answer patient/ parents questions and concerns in Layman terms. patient verbalized understanding and agree with treatment and follow-up. Patient was recommended to return to the ED if she experiences any worsening symptoms such as, but not limited to current symptoms. Continue current home medication. follow-up with discharge Clinic within 2 weeks make appointment , follow-up with straight pin making machine operator Dr. Chaidez on Sunday03/23/2025. Follow-up with Neurosurgery outpatient Patient educated and advised to resume home medication. Physical examination General Appearance: Not in acute distress HEENT: Pale [place] (L), Pale Conjuntivae (R), Pharynx Normal, TMs Normal Neck: Full Range of Motion, Non-Tender, Normal, Normal Inspection Respiratory: Chest Non-Tender, Decreased Breath Sounds, Lungs Clear, left upper chest ppm replacement site covered with dry gauze Cardiovascular: No Edema, No JVD, No Murmur, No Gallop, Normal Peripheral Pulses, Regular Rate/Rhythm Gastrointestinal: No Organomegaly, Non Tender, No Pulsatile Mass, Normal Bowel Sounds, Soft Extremities: No calf tenderness, Normal capillary refill, Non-tender, No pedal edema, Other (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) Musculoskeletal : Low-back pain, Neurologic: Alert, food sales clerk II-XII nml as Tested, Motor Weakness, Normal Affect, Normal Mood, No Sensory Deficits Cerebellar Function: Normal Skin: Dry, Pallor, Warm Operations or Procedures ORDERING PHYSICIAN: ZONIA BAEZA MD PROCEDURE(s): CXRP - CHEST PORTABLE REASON: sob ORDER NUMBER(s): [id number], ACCESSION NUMBER(s): [id number] EXAM: XY CHEST PORTABLE HISTORY: sob TECHNIQUE: 1 view of the chest COMPARISON: XY CHEST TWO VIEWS ROUTINE on DOS: 12/02/24 FINDINGS/IMPRESSION: LUNGS: No pleural effusion, consolidation, or pneumothorax MEDIASTINUM: Normal cardiac size. Left anterior chest cardiac device. BONES: No acute osseous abnormality OTHER: None ATED BY: DAVID BEASLEY MD DICTATED DATE/TIME: 03/15/25 1804 ORDERING PHYSICIAN: ZONIA BAEZA MD PROCEDURE(s): CTACH - CT ANGIO CHEST CONTRAST REASON: sob ORDER NUMBER(s): [id number], ACCESSION NUMBER(s): [id number] COMPUTERIZED TOMOGRAPHIC ANGIOGRAPHY OF THE CHEST WITH INTRAVENOUS CONTRAST REASON FOR EXAM: Shortness of breath COMPARISON: XY CHEST PORTABLE on DOS: 03/15/25, XY CHEST TWO VIEWS ROUTINE on DOS: 12/02/24, CT CHEST WITH CONTRAST on DOS: 12/06/23, CHEST TWO VIEWS ROUTINE on DOS: 04/09/20 TECHNIQUE: The exam was performed on a multidetector spiral scanner. Spiral images were acquired from the thoracic inlet through the adrenal glands, during the bolus intravenous administration of contrast. Multiplanar maximum intensity projection (MIP) images were provided. Radiation optimization: All CT scans at this facility use at least one of these dose optimization techniques: Automated exposure control mA and/or kV adjustment per patient size (includes targeted exams where dose is matched to clinical indication) or iterative reconstruction. CONTRAST ADMINISTERED: 90 mL omnipaque 350 intravenously. RADIATION DOSE: CTDI: 26.42 mGy DLP: 1007.48 mGy-cm FINDINGS: Evaluation of the lung parenchyma is severely degraded by respiratory motion artifacts. There is no lobar consolidation. There is no pleural effusion. There is no pneumothorax. Heart is borderline enlarged. There is no significant pericardial effusion. There are coronary artery calcifications. There is a cardiac pacer. Evaluation of all the chest structures is degraded by severe motion artifact. There is no large central pulmonary embolism. There is diffuse thickening of the entire length of the esophagus. The visualized portion of the upper abdomen is grossly unremarkable. No acute osseous abnormality is identified within the limitations of severe motion artifact. IMPRESSION: No large central pulmonary embolism. The study is severely degraded by motion artifact. Diffuse thickening of the entire length of the esophagus. Correlate clinically for esophagitis and possible gastroesophageal reflux. ATED BY: BRIAN CARMICHAEL MD DICTATED DATE/TIME: 03/15/25 1101 ORDERING PHYSICIAN: ERIC MICHELE RESIDENT PROCEDURE(s): BLDVT - BiLat Lower DVT REASON: r/o VTE ORDER NUMBER(s): [id number], ACCESSION NUMBER(s): [id number] CLINICAL HISTORY: r/o VTE TECHNIQUE: Color and duplex doppler imagine of the bilateral lower extremity veins was performed. Vessel compression and augmentation if possible was also performed. COMPARISON: None FINDINGS: Right lower Extremity: Right common femoral vein: Normal compressibility and flow. Right superficial femoral vein: Normal compressibility and flow. Right popliteal vein: Normal compressibility and flow. Proximal calf veins demonstrate flow. Left lower Extremity: Left common femoral vein: Normal compressibility and flow. Left superficial femoral vein: Normal compressibility and flow. Left popliteal vein: Normal compressibility and flow. Proximal calf veins demonstrate flow. IMPRESSION: NO SONOGRAPHIC EVIDENCE FOR DEEP VENOUS THROMBOSIS IN THE BILATERAL LOWER EXTREMITY VEINS. ATED BY: DAVID BEASLEY MD DICTATED DATE/TIME: 03/16/25 1154 ORDERING PHYSICIAN: ERIC MICHELE RESIDENT PROCEDURE(s): CARCL - CAROTID DUPLX W COLOR DOP REASON: rule out obstruction ORDER NUMBER(s): [id number], ACCESSION NUMBER(s): [id number] Indication: rule out obstruction Technique: Real-time ultrasound images of the neck vessels with cole-scale, color and wave Doppler were obtained. Comparison: CAROTID DUPLX W COLOR DOP on DOS: 06/21/22 Findings: Mild atherosclerotic plaque bilaterally. The following peak systolic velocities were recorded in cm/sec: Right internal carotid: 89 Right common carotid: 107 Right external carotid: 72 Right internal/common carotid ratio: 0.8 Left internal carotid: 81 Left common carotid: 107 Left external carotid: 96 Left internal/common carotid ratio: 0.8 Right vertebral artery: Patent with normal antegrade direction of flow. Left vertebral artery: Patent with normal antegrade direction of flow. Impression: No hemodynamically significant stenosis by velocity criteria. Mild atherosclerotic plaque. ATED BY: ERLINDA LARSON MD DICTATED DATE/TIME: 03/16/25 1209 ORDERING PHYSICIAN: DAYO MARTIN PROCEDURE(s): GA - CT GUIDANCE FOR NEEDLE PLACEME REASON: LUMBAR MYELOGRAM ORDER NUMBER(s): [id number], ACCESSION NUMBER(s): [id number] CT LS SPINE WO CONTRAST INDICATION: LUMBAR MYELOGRAM EXAM DATE: 03/18/2025 01:47 PM COMPARISON: None RADIATION DOSE: CTDIvol: 24.7 mGy, DLP: 3277.22 mGy*cm PROCEDURE: After obtaining written informed consent, the patient was placed prone on the interventional table. The patient's identity and the procedure were confirmed by the timeout process. Under CT, a near midline approach to the L3-4 interlaminar space was selected and the overlying skin anesthetized with several mL of 1% lidocaine. A 22G spinal needle was advanced under CT into the thecal sac with return of clear CSF. 8 mL Visi 300 was injected without compleication. The needle was removed and a bandage placed. The patient tolerated the procedure well without immediate complication. Utilizing the CT scanner, contiguous axial scans were obtained through the lumbar spine. Coronal and sagittal reformatted images were then generated. All CT scans at this medical facility are performed using dose modulation techniques as appropriate to a performed exam including the following: Automated exposure control was utilized; adjustment of the MA and/or KV according to patient size; and use of iterative reconstruction technique. FINDINGS: There are 5 lumbar segments. Mild anterolisthesis of L4-5. The lumbar vertebral body heights and alignment are maintained. The intervertebral disc spaces are narrow and degenerative. The cortical margins are intact. The paraspinal soft tissues are normal. Intrathecal contrast material is seen opacifying the thecal sac well distributed. On axial images: At L1-2, the posterior disc osteophyte complex, thecal sac, neural foramina, and facet joints are degenerative. At L2-3, the posterior disc osteophyte complex, thecal sac, severe bilateral neural foramina narrowing, and facet joints are degenerative. At L3-4, the posterior disc osteophyte complex, thecal sac, mild bilateral neural foramina narrowing, and facet joints are degenerative. At L4-5, the posterior disc osteophyte complex, thecal sac measures 4 mm, severe bilateral neural foramina narrowing, and facet joints are degenerative. Prominent posterior epidural thickness with a foci of gas visualized is nonspecific and present prior to the myelogram contributes to spinal canal narrowing. At L5-S1, the posterior disc osteophyte complex, thecal sac, severe bilateral neural foramina narrowing, and facet joints are degenerative. IMPRESSION: Severe spinal canal narrowing at L4-5 measures 4 mm in AP dimension with prominent posterior epidural thickness with a foci of gas visualized is nonspecific and could be inflammation and present prior to the myelogram contributes to spinal canal narrowing. Severe bilateral neural foramina narrowing. ATED BY: AKASH JORDAN MD DICTATED DATE/TIME: 03/19/25847 ORDERING PHYSICIAN: DAYO MARTIN PROCEDURE(s): LS2CT - LS SPINE WO CONTRAST REASON: LUMBAR MYELOGRAM ORDER NUMBER(s): [id number], ACCESSION NUMBER(s): [id number] CT LS SPINE WO CONTRAST INDICATION: LUMBAR MYELOGRAM EXAM DATE: 03/18/2025 01:47 PM COMPARISON: None RADIATION DOSE: CTDIvol: 24.7 mGy, DLP: 3277.22 mGy*cm PROCEDURE: After obtaining written informed consent, the patient was placed prone on the interventional table. The patient's identity and the procedure were confirmed by the timeout process. Under CT, a near midline approach to the L3-4 interlaminar space was selected and the overlying skin anesthetized with several mL of 1% lidocaine. A 22G spinal needle was advanced under CT into the thecal sac with return of clear CSF. 8 mL Visi 300 was injected without compleication. The needle was removed and a bandage placed. The patient tolerated the procedure well without immediate complication. Utilizing the CT scanner, contiguous axial scans were obtained through the lumbar spine. Coronal and sagittal reformatted images were then generated. All CT scans at this medical facility are performed using dose modulation techniques as appropriate to a performed exam including the following: Automated exposure control was utilized; adjustment of the MA and/or KV according to patient size; and use of iterative reconstruction technique. FINDINGS: There are 5 lumbar segments. Mild anterolisthesis of L4-5. The lumbar vertebral body heights and alignment are maintained. The intervertebral disc spaces are narrow and degenerative. The cortical margins are intact. The paraspinal soft tissues are normal. Intrathecal contrast material is seen opacifying the thecal sac well distributed. On axial images: At L1-2, the posterior disc osteophyte complex, thecal sac, neural foramina, and facet joints are degenerative. At L2-3, the posterior disc osteophyte complex, thecal sac, severe bilateral neural foramina narrowing, and facet joints are degenerative. At L3-4, the posterior disc osteophyte complex, thecal sac, mild bilateral neural foramina narrowing, and facet joints are degenerative. At L4-5, the posterior disc osteophyte complex, thecal sac measures 4 mm, severe bilateral neural foramina narrowing, and facet joints are degenerative. Prominent posterior epidural thickness with a foci of gas visualized is nonspecific and present prior to the myelogram contributes to spinal canal narrowing. At L5-S1, the posterior disc osteophyte complex, thecal sac, severe bilateral neural foramina narrowing, and facet joints are degenerative. IMPRESSION: Severe spinal canal narrowing at L4-5 measures 4 mm in AP dimension with prominent posterior epidural thickness with a foci of gas visualized is nonspecific and could be inflammation and present prior to the myelogram contributes to spinal canal narrowing. Severe bilateral neural foramina narrowing. ATED BY: AKASH JORDAN MD DICTATED DATE/TIME: 03/19/25 0848 ORDERING PHYSICIAN: STEVE PEARL MD PROCEDURE(s): CXRP - CHEST PORTABLE REASON: S/P PACEMAKER GENERATOR PLACEMENT ORDER NUMBER(s): [id number], ACCESSION NUMBER(s): [id number] INDICATION: S/P PACEMAKER GENERATOR PLACEMENT TECHNIQUE: Frontal view of the chest. COMPARISON: XY CHEST PORTABLE on DOS: 03/15/25, XY CHEST TWO VIEWS ROUTINE on DOS: 12/02/24, CT CHEST WITH CONTRAST on DOS: 12/06/23, XY CHEST TWO VIEWS ROUTINE on DOS: 12/28/22, CHEST TWO VIEWS ROUTINE on DOS: 04/09/20 FINDINGS: Dual lead left-sided pacemaker.. The heart and mediastinal contours are grossly unremarkable. There is no evidence of pleural disease. The lungs are clear. The bony structures of the chest are intact without fracture. IMPRESSION: 1. No evidence of acute disease. ATED BY: DAVID BEASLEY MD DICTATED DATE/TIME: 03/19/25 1431 Condition at Discharge: Stable Final Diagnosis/Problems List Presyncope due to atrial lead dysfunction in PPM Acute on chronic systolic heart failure, EF 45-50% Severe spinal canal narrowing L4-5 Low-back pain Essential hypertension Hyperlipidemia Atrial fibrillation COREY due to vasomotor nephropathy Hyponatremia Hypokalemia Lactic acidosis Type 2 diabetes mellitus with hyperglycemia Tout Hypothyroidism Vitamin-D deficiency Prostatic hyperplasia Hemoconcentration likely dehydration Hyperbilirubinemia Generalized weakness Discharge Disposition: Home Discharge Instruct/Medications Diet: Cardiac 2g Na,low cholest Activity: No Restrictions, As Tolerated Follow Up/Referral: Follow-up with straight pin making machine operator Dr. Chaidez on Sunday03/23/2025. Follow-up with Neurosurgery outpatient Scheduled Allopurinol (Allopurinol), 300 MG PO DAILY, (Reported) Amlodipine Besylate (Amlodipine Besylate), 1 TAB PO DAILY, (Reported) Apixaban Base (Eliquis), 2.5 MG PO BID, (Reported) Cholecalciferol (Vitamin D3), 1,000 UNIT OR DAILY, (Reported) Clopidogrel Bisulfate (Clopidogrel), 1 TAB PO DAILY, (Reported) Dapagliflozin Propanediol (Farxiga), 10 MG PO DAILY, (Reported) Dulaglutide (Trulicity), 1.5 MG SC QWEEKLY, (Reported) Finasteride (Finasteride), 5 MG PO DAILY, (Reported) Finerenone (Kerendia), 10 MG PO DAILY, (Reported) Insulin Lispro (Human) (Humalog), 24 UNITS SC TID, (Reported) Levofloxacin Hemihydrate (Levofloxacin), 1 TAB PO DAILY Levothyroxine Sodium (Levothyroxine Sodium), 100 MCG PO QAM, (Reported) Lisinopril & Hydrochlorothiazi (Zestoretic 20-12.5 mg), 2 TAB PO DAILY, (Reported) Metformin Hydrochloride (Metformin Hcl), 1 TAB PO BID, (Reported) Multiple Vitamin (Multivitamins), 1 TAB PO DAILY, (Reported) Tramadol HCl (Tramadol HCl), 50 MG PO DAILY, (Reported) Miscellaneous Medications Atorvastatin Calcium (Atorvastatin Calcium), 1 TAB PO, (Reported) Insulin Glargine (Toujeo Solostar), 24 UNIT SC, (Reported) Discontinued Medications Atorvastatin Calcium (Atorvastatin Calcium), 2 TAB PO DAILY, (Reported) Celecoxib (Celebrex), 1 CAP PO DAILY, (Reported) Discharge Statement: "Patient was advised to return to the ER or call 911 if any headaches, dizziness, shortness of breath, chest pain, abdominal pain, bleeding, fevers, or worsening of medical condition. Patient was counseled about treatment plan, medications, possible side effects, patientverbalized understanding. All questions were answered to the best of my ability. This discharge took greater then 30 minutes in planning, reviewing documentation, counseling the patient, and discussing with other team members." ASSESSMENT ASSESSMENT Assessment Presyncope due to atrial lead dysfunction in PPM, s/p replacement. Date of Service: Mar 20, 2025 Billing Provider: VAL PHILLIPS MD Common Visit Codes: 41019-MLJ/OBS DISCH DAY >30min DAYO MARTIN RESIDENT Mar 20, 2025 14:30 VAL PHILLIPS MD Mar 20, 2025 21:45
[2025-03-20 14:43] VITALS: BP_SYST 113; BP_SYST 119; BP_SYST 125; BP_DIAS 77; BP_DIAS 82; PULSE 75; RESP 18; TEMP 98.2; O2SAT 96
[2025-03-20 16:31] VITALS: BP 116/78; TEMP 36.8
[2025-03-20 16:32] VITALS: BP 121/79; PULSE 75; RESP 19; TEMP 98.1; O2SAT 93
[2025-03-20] MEDS ORDERED: LEVO500T91 PO (16:47)
== END 2025-03-20 17:25 | disposition home or self-care (01) | DRG 242 ==
LOC: EDBD 16:26 → ER 16:26 → OVERFLOW 23:10 → TELE-WESTW 03-16 02:36
PROVIDERS: ADMIT Student in an Organized Health Care Education/Training Program; ATTEND Student in an Organized Health Care Education/Training Program
PROC: 009U3ZZ Drainage of Spinal Canal, Percutaneous Approach (ICD-10-PCS; 2025-03-18)
PROC: 02H63JZ Insertion of Pacemaker Lead into Right Atrium, Percutaneous Approach (ICD-10-PCS; principal; 2025-03-19)
PROC: 0JH606Z Insertion of Pacemaker, Dual Chamber into Chest Subcutaneous Tissue and Fascia, Open Approach (ICD-10-PCS; 2025-03-19)
PROC: 02PA3MZ Removal of Cardiac Lead from Heart, Percutaneous Approach (ICD-10-PCS; 2025-03-19)
PROC: 0JPT0PZ Removal of Cardiac Rhythm Related Device from Trunk Subcutaneous Tissue and Fascia, Open Approach (ICD-10-PCS; 2025-03-19)
DX: T82.110A Breakdown (mechanical) of cardiac electrode, initial encounter (principal); I50.23 Acute on chronic systolic (congestive) heart failure; N17.0 Acute kidney failure with tubular necrosis; J96.01 Acute respiratory failure with hypoxia; E87.21 Acute metabolic acidosis; R65.10 Systemic inflammatory response syndrome (SIRS) of non-infectious origin without acute organ dysfunction; D68.59 Other primary thrombophilia; E87.20 Acidosis, unspecified; E87.1 Hypo-osmolality and hyponatremia; I48.20 Chronic atrial fibrillation, unspecified; E78.5 Hyperlipidemia, unspecified; E11.65 Type 2 diabetes mellitus with hyperglycemia; E03.9 Hypothyroidism, unspecified; M10.9 Gout, unspecified; G90.89 Other disorders of autonomic nervous system; I25.10 Atherosclerotic heart disease of native coronary artery without angina pectoris; I11.0 Hypertensive heart disease with heart failure; D75.1 Secondary polycythemia; E80.6 Other disorders of bilirubin metabolism; N40.0 Benign prostatic hyperplasia without lower urinary tract symptoms; E87.6 Hypokalemia; E66.3 Overweight; K20.90 Esophagitis, unspecified without bleeding; I95.1 Orthostatic hypotension; M48.061 Spinal stenosis, lumbar region without neurogenic claudication; E86.0 Dehydration; E55.9 Vitamin D deficiency, unspecified; Z68.29 Body mass index [BMI] 29.0-29.9, adult; Z95.5 Presence of coronary angioplasty implant and graft; Z95.0 Presence of cardiac pacemaker; Z79.4 Long term (current) use of insulin; Z79.01 Long term (current) use of anticoagulants; Z79.84 Long term (current) use of oral hypoglycemic drugs; Z79.899 Other long term (current) drug therapy; Y84.8 Other medical procedures as the cause of abnormal reaction of the patient, or of later complication, without mention of misadventure at the time of the procedure; Y92.89 Other specified places as the place of occurrence of the external cause
CPT/HCPCS: 10005; 33216; 33234; 36415; 71045; 71275; 72131; 77012; 80048; 80053; 80061; 81001; 82607; 82962; 83036; 83605; 83880; 84443; 84484; 85025; 85379; 85610; 87040; 87426; 93005; 93886; 93970; 96360; 96361; 97110; 97116; 97163; 97530; 99152; 99291; G0378; J2003; J2250; J2470; J3480

== ENCOUNTER 2025-03-27 14:29 | Outpatient (CLI) | payer MEDICARE, BC ==
[2025-03-27 14:20] VITALS: BP 146/86; PULSE 76; RESP 18; O2SAT 96
[~2025-03-27 14:29] MED LIST changes: -ATOR20TA50 PO; +ATOR40TA52 PO; -CELE200C PO; +CLOP75TA70 PO; +DAPA1TAB4 PO; +LEVO500T91 PO; +TRAM-626 PO
[2025-03-27 15:00] VITALS: BP 135/77; PULSE 70; RESP 18; O2SAT 96
[2025-03-27] MEDS: FAMOTIDINE 20 MG TAB ONE (16:01)
== END 2025-03-27 17:00 | disposition home or self-care (01) ==
LOC: CHF HDHVI 14:29
PROVIDERS: ATTEND Internal Medicine Cardiovascular Disease
DX: I11.0 Hypertensive heart disease with heart failure (principal); I50.9 Heart failure, unspecified; R42 Dizziness and giddiness; Z48.01 Encounter for change or removal of surgical wound dressing
CPT/HCPCS: 93005; G0463